=== PATIENT | male | born 1975 | race Caucasian/White ===

== ENCOUNTER 2017-03-18 11:37 | Observation (INO) | payer SELFPAY ==
[2017-03-18] MEDS ORDERED: Aspirin Low Dose CHEW TAB* 81 MG PO ONE (12:52)
[2017-03-18] MEDS ORDERED: Albuterol/Ipratropium NEB.SOL* Albuterol 2.5 MG/Ipratropium 0.5 MG 3 ML INH ONE ×2 (12:57→13:48)
[2017-03-18] MEDS ORDERED: methylPREDNISolone SOD SUCC* 125 MG 2 ML VIAL IV ONE (13:48)
[2017-03-18] MEDS: Nitroglycerin TAB 0.4 MG* 0.4 MG TAB SL ONE ×2 (14:15→14:52)
--- NOTE | 2017-03-18 14:25 | RAD ---
INDICATION: Chest pain. COMPARISON: Comparison is made with a prior chest x-ray study from April 05, 2012. TECHNIQUE: A portable view of the chest was obtained. FINDINGS: Cardiac and mediastinal contours appear to be within normal limits. The lungs are inflated and clear. No pleural effusion or pneumothorax is seen. IMPRESSION: NO EVIDENCE FOR ACUTE DISEASE.
[2017-03-18 14:26] LABS: Hematocrit 47 % (42-52); Hemoglobin 15.8 g/dl (14.0-18.0); Mean Corpuscular HGB Conc 34 g/dl (31-36); Mean Corpuscular Hemoglobin 30 pg (27-31); Mean Corpuscular Volume 90 fL (80-94); Mean Platelet Volume 9 um3 (7.4-10.4); Red Blood Count 5.23 10^6/ul (4.0-5.4); Red Cell Distribution Width 14 % (10.5-15); White Blood Count 9.3 10^3/ul (3.5-10.8)
[2017-03-18 14:40] LABS: Albumin 3.9 g/dL (3.2-5.2); BUN/Creatinine Ratio 14.6 (8-20); Calcium 9.2 mg/dL (8.6-10.3); EGFR Non-African American 93.3 (>60); Globulin 2.7 g/dL (2-4); Total Bilirubin 0.6 mg/dL (0.2-1.0); Total Protein 6.6 g/dL (6.4-8.9)
[2017-03-18] MEDS ORDERED: Iohexol 350* (CONTRAST) 500 ML MDV IV ONE (14:47)
--- NOTE | 2017-03-18 15:20 | RAD ---
INDICATION: Shortness of breath, LEFT side chest pain. COMPARISON: February 12, 2012 CT. TECHNIQUE: Multidetector CT images were obtained from the lung apices to the upper abdomen with 67 mL Omnipaque 350 IV contrast. Pulmonary angiogram protocol. Multiplanar reformation including with maximum intensity projection. REPORT: 1.3 cm RIGHT apical bleb. No alveolar consolidation or suspicious focal pulmonary lesions. Clear central airways. Negative for pleural effusion or pneumothorax. Negative for thoracic lymphadenopathy, cardiomegaly, pericardial effusion. Normal diameter well opacified thoracic aorta. Negative for dissection of the thoracic aorta. No filling defects are identified from the main to the subsegmental pulmonary arteries to indicate presence of a pulmonary embolism. Unremarkable limited images through the upper abdomen. Negative for thoracic fracture or suspicious focal osseous lesions. IMPRESSION: No evidence for pulmonary embolism or other acute intrathoracic process. Negative exam.
[2017-03-18] MEDS ORDERED: Albuterol HFA INHALER* 8 gm MDI INH PRN (17:39)
[2017-03-18] MEDS ORDERED: Enoxaparin(*) 40 MG/0.4 ML SYR SUBCUT SCH (18:00)
[2017-03-18] MEDS: Nicotine PATCH 21 MG/24 HR* PATCH TRANSDERM SCH (18:11)
[2017-03-18] MEDS: oxyCODONE/Acetamin 5/325 MG* TAB PO PRN (19:38)
[2017-03-18] MEDS ORDERED: HYDROmorphone* 1 MG/ML 1 ML SYR IV SLOW PU ONE (21:25)
--- NOTE | 2017-03-18 21:49 | HP ---
ADMISSION HISTORY AND PHYSICAL: DATE OF ADMISSION: 03/18/17 PRIMARY CARE PROVIDER: None. ADMITTING PROVIDER: MARTIN Argueta. SUPERVISING PHYSICIAN: Janell Carolina MD.* (DICTATED BY MARTIN ARGUETA) CHIEF COMPLAINT: Chest pain. HISTORY OF PRESENT ILLNESS: This is a 41-year-old gentleman with history of asthma and significant smoking history who presented to the emergency department with complaints of chest pain. The patient awoke with these symptoms this morning. He has initially noted some tingling sensation in both of his arms and then it seems to be in his left arm only. He reported some associated shortness of breath and he has a chronic cough that is unchanged. He states that his chest pain started to improve after receiving the second dose of nitroglycerin in the emergency department. Denied any associated nausea , vomiting, or diaphoresis. No history of similar symptoms. Of note, the patient's brother who is age 45 had an acute HI approximately 2 weeks ago. He denies any recent illness. PAST MEDICAL HISTORY: 1. Asthma. 2. History of spontaneous pneumothorax. PAST SURGICAL HISTORY: 1. Inguinal hernia repair x2. 2. Appendectomy. HOME MEDICATIONS: 1. Albuterol 2 puffs q.4 hours as needed for shortness of breath. 2. Aspirin 325 mg p.o. q.6 hours as needed for pain. FAMILY HISTORY: The patient's father had an acute HI in his 60s and his brother at the age of 45 also sustained an acute HI. SOCIAL HISTORY: The patient is and lives with his . 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 He smokes 2 packs of cigarettes daily with greater than [id number] smoking history. Rarely consumes alcohol. REVIEW OF SYSTEMS: As listed above in HPI, all other systems reviewed and negative. PHYSICAL EXAMINATION GENERAL: This is a 41-year-old gentleman who appears comfortable lying in a hospital stretcher, accompanied by his mother. INITIAL VITAL SIGNS: Temperature 98 degrees Fahrenheit, pulse 77 beats per minute, respiratory rate 20 per minute, oxygen saturation 100% on room air, and blood pressure 133/83 mmHg. HEENT: Head is normocephalic and atraumatic. Mucous membranes are pink and moist. RESPIRATORY: Lungs are clear to auscultation without wheezes, crackles, or rhonchi. CHEST: No tenderness to palpation. CARDIOVASCULAR: Heart has regular rate and rhythm without murmurs, rubs, or gallops. ABDOMEN: Abdomen is soft and nontender to palpation. EXTREMITIES: No lower extremity edema. SKIN: No concerning rashes or lesions. PSYCH: The patient is alert and appropriately oriented. DIAGNOSTIC STUDIES/LAB DATA: CBC is unremarkable with white blood cell count of 9.3, hemoglobin of 15.8 g/dL, and platelet count of 217,000. D-dimer is negative, is listed at less than 200. Comprehensive metabolic panel is unremarkable with the sodium of 138 mmol/L, potassium 4.0, random glucose of 111 mg/dL, lactic acid normal at 1.5, troponin negative x2. IMAGING: Chest x-ray shows no acute process. CTA of the chest shows no PE or other intrathoracic process. EKG shows a normal sinus rhythm. ASSESSMENT AND PLAN: This is a 41-year-old gentleman with history of asthma and extensive smoking history, who presents to the emergency department with complaints of chest pain. He has a strong family history for coronary disease. Initial EKG and troponins are unremarkable. 1. Chest pain - the patient is being admitted to observation status with complaint of chest pain. Initial troponin and EKG are unremarkable. The patient will receive one additional troponin. We will plan for nuclear stress test in the morning, maintain continuous telemetry monitoring overnight as well as fasting lipid panel. 2. Asthma - no evidence of acute exacerbation. The patient is nontoxic. No significant wheeze on exam. Continue p.r.n. albuterol. 3. Tobacco abuse - the patient is not interested in quitting at this time. He would like a nicotine patch during his hospital stay. 3. Code status - the patient is full code. 4. DVT prophylaxis - place the patient on Lovenox subcu for prophylaxis as he is at moderate risk for deep venous thrombosis. DISPOSITION: The patient is being admitted to observation status with anticipated discharge tomorrow. MARTIN ARGUETA [id number]/[facility] #: [id number] MTDDaina
[2017-03-18] MEDS ORDERED: Nicotine Patch Removal NOTE PATCH OFF SCH (23:00)
[2017-03-19] MEDS: oxyCODONE/Acetamin 5/325 MG* TAB PO PRN ×2 (00:43→07:21)
[2017-03-19] MEDS: Ketorolac INJ* 15 MG/ML 1 ML VIAL IV PRN ×2 (00:44→07:21)
[2017-03-19 04:44] VITALS: BP 102/46
[2017-03-19 06:50] LABS: BUN/Creatinine Ratio 20.6 (8-20); Calcium 9.3 mg/dL (8.6-10.3); EGFR African American 102.5 (>60); EGFR Non-African American 79.7 (>60); Potassium 4.5 mmol/L (3.5-5.0)
[2017-03-19] MEDS: Nicotine PATCH 21 MG/24 HR* PATCH TRANSDERM SCH (07:20)
[2017-03-19] MEDS ORDERED: Regadenoson* 0.4 MG/5 ML SYRINGE ONE (08:03)
[2017-03-19] MEDS ORDERED: Aminophylline IV* 25 MG/ML 10 ML VIAL ONE (08:03)
--- NOTE | 2017-03-19 09:55 | RAD ---
Edited for charges. INDICATION: Chest pain, tobacco use, family history of cardiac disease. COMPARISON: July 19, 2011 TECHNIQUE: 10.670 mCi of Tc-99m Myoview were administered IV. SPECT images of the heart were obtained. Later on the same day, under the direction of Dr. Ruiz, the patient was given an IV injection of a pharmacologic stress agent. Subsequently, the patient was given an IV injection of 25.780 mCi Tc-99m Myoview. SPECT images of the heart were obtained and a gated wall motion study was performed. FINDINGS: Gated wall motion images were obtained at stress and demonstrate wall motion to be within normal limits. The calculated left ventricular ejection fraction is 66 % at stress. Estimated LEFT ventricular end diastolic volume is 88 mL. TID 1.01. Diaphragmatic attenuation noted. Based on review of the attenuation corrected and non corrected images the distribution of radiopharmaceutical within the myocardium on the stress and rest images is within normal limits. No fixed or reversible regions of hypoperfusion evident. IMPRESSION: 1. No evidence for stress induced myocardial ischemia or presence of an infarct. 2. Normal left ventricular wall motion and ejection fraction. ASSESSMENT: LOW RISK. Based on imaging criteria from ACC/AHA 2002 Guideline Update for the Management of Patients With Chronic Stable Angina Table 23. Noninvasive Risk Stratification. MTDD
--- NOTE | 2017-03-20 02:15 | DS ---
DISCHARGE SUMMARY: DATE OF ADMISSION: 03/18/17 DATE OF DISCHARGE: 03/19/17 PRIMARY CARE PROVIDER: None. DISCHARGING PROVIDER: MARTIN Argueta. SUPERVISING PHYSICIAN: Janell Carolina MD.* (dictated by MARTIN Argueta) PRIMARY DISCHARGE DIAGNOSIS: Chest pain - likely musculoskeletal in origin. SECONDARY DISCHARGE DIAGNOSES: 1. Asthma/chronic obstructive pulmonary disease without acute exacerbation. 2. Tobacco use disorder. DISCHARGE MEDICATION: Albuterol inhaler 2 puffs inhaled q.4 hours as needed for shortness of breath. MEDICATION CHANGES: None. HOSPITAL IMAGIN. Chest x-ray shows no acute process. 2. CTA of the chest shows no PE or other acute process. 3. Nuclear stress test is read as a low risk study without evidence of ischemia or prior infarct. 4. EKG shows sinus rhythm with nonspecific ST segment changes that remains unchanged on serial EKGs. HOSPITAL COURSE: This is a 41-year-old gentleman with a significant smoking history and diagnosis of asthma who presents to the emergency department with complaints of chest pain. The patient awoke with left-sided chest pain with some associated shortness of breath yesterday. He reported associated tingling sensation in both of his arms that later concentrated in his left arm. The patient reported some improvement in his chest pain when he reached the emergency department after receiving his second dose of nitroglycerin. He reported some associated shortness of breath. He has a chronic cough, which did not change. No associated nausea, vomiting, or diaphoresis. Initial labs were unremarkable including a negative D-dimer and negative troponin. His initial EKG showed sinus rhythm with some nonspecific ST segment changes that were likely benign, but no prior EKGs were available for comparison at that time. The patient also reported a strong family history of coronary artery disease. His father sustained an acute NC in his 60s and his brother sustained an acute NC at the age of 45, actually just 2 weeks ago. The patient was subsequently admitted to observation status. He underwent serial troponins, which remains negative and continuous elementary monitoring which was unremarkable. He underwent nuclear stress test which was read as a low risk study. The patient describes continued chest pain at night, both at rest and with activity. Morning of discharge, he was able to reproduce his chest pain with shoulder flexion. He also complained of a slight tingling sensation in his left arm. Symptoms seemed to be most consistent with a muscular strain and likely associated nerve impingement. DISPOSITION: The patient is being discharged to home. He does not have health insurance or primary care provider. Offered for the patient to be with oncology social work to help obtain health insurance and a referral to primary care. He declined both of these. A prescription was sent for his albuterol inhaler as he did not have an inhaler available to him at home. This was sent to program. The patient is strongly advise to obtain health insurance and a primary care provider. MARTIN ARGUETA [id number]/[facility] #: [id number] JALEESA
== END 2017-03-19 11:30 | disposition home or self-care (01) ==
LOC: ED 11:37 → MEDTELE 17:33
PROVIDERS: ADMIT Internal Medicine; ATTEND Internal Medicine
DX: R07.9 Chest pain, unspecified (principal); R06.02 Shortness of breath; R20.2 Paresthesia of skin; R05 Cough; F17.210 Nicotine dependence, cigarettes, uncomplicated; J45.909 Unspecified asthma, uncomplicated; Z82.49 Family history of ischemic heart disease and other diseases of the circulatory system; Z87.09 Personal history of other diseases of the respiratory system
CPT/HCPCS: 36415; 71010; 71275; 78452; 80048; 80053; 80061; 83605; 83880; 84484; 85025; 85379; 93005; 93017; 94640; 96374; 99283; A9270-GY; A9502; G0378; J0280; J1170; J1650; J1885; J2785; Q9967

== ENCOUNTER 2017-03-24 19:24 | Emergency (ER) | payer SELFPAY ==
[2017-03-24 19:39] VITALS: BP 124/77
[2017-03-24] MEDS ORDERED: Polymyx/Trimethoprim OPTH* 10 ML BTL RIGHT EYE SCH (20:00)
--- NOTE | 2017-03-24 20:00 | ED ---
Throat Pain/Nasal Congestion - HPI Summary HPI Summary: 41M presents with two pieces of metal in right eye today. 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 He states he has surgery in this eye before due to a foreign body. His last tetanus was within 5 years ago. He does not wear any contacts or glasses. He states he has tried to take the metal object out off his eye and has been unable to do so. He denies any change in vision or discharge from his eye. - History of Current Complaint Chief Complaint: EDEyeProblem Time Seen by Provider: 03/24/17 19:40 - Allergies/Home Medications Allergies/Adverse Reactions: Allergies Allergy/AdvReac Type Severity Reaction Status Date / Time Hydrocodone [From Vicodin] Allergy Severe Nausea And Verified 12/19/15 16:45 Vomiting Morphine Allergy Severe Itching Verified 12/19/15 16:45 Codeine Allergy Vomiting Verified 12/19/15 16:45 Penicillins [PCN] Allergy Vomiting Verified 12/19/15 16:45 PMH/Surg Hx/FS Hx/Imm Hx Endocrine/Hematology History: Denies: Hx Anticoagulant Therapy, Hx Diabetes, Hx Thyroid Disease Cardiovascular History: Denies: Hx Congestive Heart Failure, Hx Hypertension, Hx Pacemaker/ICD, Hx Peripheral Vascular Disease Respiratory History: Reports: Hx Asthma, Other Respiratory Problems/Disorders - pneumothorax Denies: Hx Chronic Obstructive Pulmonary Disease (COPD) GI History: Denies: Other GI Disorders History: Denies: Hx Renal Disease Musculoskeletal History: Reports: Hx Back Problems - CHRONIC BACK PAIN Denies: Hx Arthritis, Hx Osteoporosis, Hx Scoliosis Sensory History: Denies: Hx Cataracts, Hx Contacts or Glasses, Hx Glaucoma, Hx Hearing Aid Opthamlomology History: Denies: Hx Cataracts, Hx Contacts or Glasses, Hx Glaucoma Neurological History: Reports: Hx Headaches Denies: Hx Dementia, Hx Seizures, Hx Transient Ischemic Attacks (TIA), Other Neuro Impairments/Disorders Psychiatric History: Denies: Hx Anxiety, Hx Depression, Hx Substance Abuse - Surgical History Surgery Procedure, Year, and Place[place] [facility] [place]ING[place]IN[place]IA SX'[place] [facility] [place] Hx Anesthesia Reactions: No Infectious Disease History: No Infectious Disease History: Denies: Hx Hepatitis, Hx Human Immunodeficiency Virus (HIV), History Other Infectious Disease, Traveled Outside the [place] in Last 30 Days - Family History Known Family History: Positive: Cardiac Disease - Brother with [place] at age 45. - Social History Alcohol Use: Rare Substance Use Type: Reports: None Hx Tobacco Use: Yes Smoking Status (MU): Heavy Every Day Tobacco Smoker Type: Cigarettes Amount Used/How Often: 1 PPD Review of Systems Negative: Fever Positive: Other - foreign body in eye Negative: Chest Pain Negative: Shortness Of Breath All Other Systems Reviewed And Are Negative: Yes Physical Exam Triage Information Reviewed: Yes Vital Signs On Initial Exam: Initial Vitals Temp Pulse Resp BP Pulse Ox 97.8 F 104 16 144/81 99 03/24/17 19:25 03/24/17 19:25 03/24/17 19:25 03/24/17 19:25 03/24/17 19:25 Vital Signs Reviewed: Yes Appearance: Positive: Well-Appearing Skin: Positive: Warm, Dry Head/Face: Positive: Normal Head/Face Inspection Eyes: Positive: EOMI, VIVIANA, Conjunctiva Inflammed, Other: - 2 metal objects seen in right eye on lateral aspect of eye. Negative: Discharge ENT: Positive: Normal ENT inspection, Pharynx normal, TMs normal Respiratory/Lung Sounds: Positive: Clear to Auscultation, Breath Sounds Present Cardiovascular: Positive: Normal, RRR Procedures - Eye Procedure Alcaine Drops Administered: Yes - small 1/4 abrasion noted on fluroscein exam Eye FB Removal: removal w/ cotton swab - two objects removed from eye Diagnostics - Vital Signs Vital Signs Temp Pulse Resp BP Pulse Ox 03/24/17 19:37 99.5 F 94 16 124/77 97 03/24/17 19:25 97.8 F 104 16 144/81 99 - Laboratory Lab Statement: Any lab studies that have been ordered have been reviewed, and results considered in the medical decision making process. EENT Course/Dx - Course Course Of Treatment: 41M presents with metal in right eye from welding. removed both objects with cotton swap. fluroscein exam shows small corneal abrasion. tetanus up to date. will treat with polytrim and have follow up with ophthalmology. patient understands and agrees with plan - Differential Diagnoses Differential Diagnoses: Conjunctivitis, Corneal Abrasion, Foreign Body - Diagnoses Provider Diagnoses: Foreign body of right eye Discharge - Discharge Plan Condition: Good Disposition: HOME Patient Education Materials: Eye Foreign Body (ED) Referrals: No Primary Care Phys,NOPCP [Primary Care Provider] - Julian Pillai MD [Medical Doctor] - Additional Instructions: Place one drop in right eye 4 times a day for 5 days Follow up with ophthalmology Take Tylenol or ibuprofen for pain Return to ED if develop any new or worsening symptoms
== END 2017-03-24 20:33 | disposition home or self-care (01) ==
LOC: ED 19:24
DX: T15.91XA Foreign body on external eye, part unspecified, right eye, initial encounter (principal); X58.XXXA Exposure to other specified factors, initial encounter; Y93.9 Activity, unspecified; Y92.9 Unspecified place or not applicable; F17.210 Nicotine dependence, cigarettes, uncomplicated
CPT/HCPCS: 99282

== ENCOUNTER 2017-05-20 18:39 | Emergency (ER) | payer SELFPAY ==
[2017-05-20] MEDS ORDERED: Ibuprofen TAB* 800 MG PO ONE (19:43)
[2017-05-20 20:15] LABS: Hematocrit 44 % (42-52); Hemoglobin 14.9 g/dl (14.0-18.0); Mean Corpuscular HGB Conc 34 g/dl (31-36); Mean Corpuscular Hemoglobin 31 pg (27-31); Mean Corpuscular Volume 92 fL (80-94); Mean Platelet Volume 8 um3 (7.4-10.4); Red Cell Distribution Width 13 % (10.5-15); White Blood Count 9.6 10^3/ul (3.5-10.8)
[2017-05-20 20:30] LABS: BUN/Creatinine Ratio 19.4 (8-20); C Reactive Protein 4.77 mg/L (< 5.00); Calcium 9.3 mg/dL (8.6-10.3); EGFR African American 101.4 (>60); EGFR Non-African American 78.8 (>60); Globulin 2.6 g/dL (2-4); Potassium 3.9 mmol/L (3.5-5.0); Total Bilirubin 0.5 mg/dL (0.2-1.0); Total Protein 6.6 g/dL (6.4-8.9)
--- NOTE | 2017-05-20 20:48 | ED ---
thien Chavez Timothy, scribed for Lorenzo Ma MD on 05/20/17 at 1942 . Abdominal Pain/Male - HPI Summary HPI Summary: Sharad Barakat Sr. is a 41 yo male presenting to [facility] with 10/10 constant mid abd pain radiating around the right side to his back since 05/16/17. He denies any trauma or Hx of similar Sx. He notes that lying down increases the pain in his back, and taking a bath makes it burn. He denies any N/V/D or fever. His MHx includes MCKINNEY, asthma, herniated disk C5-C6, chronic back pain, tobacco use. - History of Current Complaint Chief Complaint: EDAbdPain Stated Complaint: UPPER ABD/BACK PAIN Time Seen by Provider: 05/20/17 19:36 Hx Obtained From: Patient Onset/Duration: Sudden Onset, Lasting Days, Still Present Timing: Constant, Lasting Days Severity Initially: Moderate Severity Currently: Moderate Pain Intensity: 10 Pain Scale Used: 0-10 Numeric Location: Diffuse Radiates: Yes Radiates to: Back Character: Burning - when in bath Aggravating Factor(s): Other: - lying down Associated Signs And Symptoms: Positive: Back Pain. Negative: Nausea, Vomiting , Diarrhea - Allergies/Home Medications Allergies/Adverse Reactions: Allergies Allergy/AdvReac Type Severity Reaction Status Date / Time Hydrocodone [From Vicodin] Allergy Severe Nausea And Verified 12/19/15 16:45 Vomiting Morphine Allergy Severe Itching Verified 12/19/15 16:45 Codeine Allergy Vomiting Verified 12/19/15 16:45 Penicillins [PCN] Allergy Vomiting Verified 12/19/15 16:45 PMH/Surg Hx/FS Hx/Imm Hx Endocrine/Hematology History: Denies: Hx Anticoagulant Therapy, Hx Diabetes, Hx Thyroid Disease Cardiovascular History: Denies: Hx Congestive Heart Failure, Hx Hypertension, Hx Pacemaker/ICD, Hx Peripheral Vascular Disease Respiratory History: Reports: Hx Asthma, Other Respiratory Problems/Disorders - pneumothorax Denies: Hx Chronic Obstructive Pulmonary Disease (COPD) GI History: Denies: Other GI Disorders History: Denies: Hx Renal Disease Musculoskeletal History: Reports: Hx Back Problems - CHRONIC BACK PAIN Denies: Hx Arthritis, Hx Osteoporosis, Hx Scoliosis Sensory History: Denies: Hx Cataracts, Hx Contacts or Glasses, Hx Glaucoma, Hx Hearing Aid Opthamlomology History: Denies: Hx Cataracts, Hx Contacts or Glasses, Hx Glaucoma Neurological History: Reports: Hx Headaches Denies: Hx Dementia, Hx Seizures, Hx Transient Ischemic Attacks (TIA), Other Neuro Impairments/Disorders Psychiatric History: Denies: Hx Anxiety, Hx Depression, Hx Substance Abuse - Surgical History Surgery Procedure, Year, and Place: APPENDECTOMY @ [facility] [place] 20 [place]RS[place], [place].INGUINAL HERNIA SX'S @ [facility] [place] 2 [place] Hx Anesthesia Reactions: No Infectious Disease History: No Infectious Disease History: Denies: Hx Hepatitis, Hx Human Immunodeficiency Virus (HIV), History Other Infectious Disease, Traveled Outside the [place] in Last 30 Days - Family History Known Family History: Positive: Cardiac Disease - Brother with NC at age 45. , Hypertension, Diabetes - Social History Alcohol Use: Rare Substance Use Type: Reports: None Hx Tobacco Use: Yes Smoking Status (MU): Heavy Every Day Tobacco Smoker Type: Cigarettes Amount Used/How Often: 1 PPD Review of Systems Constitutional: Negative Negative: Fever Eyes: Negative ENT: Negative Cardiovascular: Negative Respiratory: Negative Positive: Abdominal Pain - radiating to right side and back. Negative: Vomiting , Diarrhea, Nausea Genitourinary: Negative Musculoskeletal: Negative Skin: Negative Neurological: Negative Psychological: Normal All Other Systems Reviewed And Are Negative: Yes Physical Exam Triage Information Reviewed: Yes Vital Signs On Initial Exam: Initial Vitals Temp Pulse Resp BP Pulse Ox 98.7 F 88 18 132/83 97 05/20/17 18:51 05/20/17 18:51 05/20/17 18:51 05/20/17 18:51 05/20/17 18:51 Vital Signs Reviewed: Yes Appearance: Positive: Well-Appearing, No Pain Distress Skin: Positive: Warm Head/Face: Positive: Normal Head/Face Inspection Eyes: Positive: VIVIANA ENT: Positive: Hearing grossly normal Neck: Positive: Supple Respiratory/Lung Sounds: Positive: Clear to Auscultation, Breath Sounds Present Cardiovascular: Positive: RRR Abdomen Description: Positive: Nontender, No Organomegaly, Soft Bowel Sounds: Positive: Present Musculoskeletal: Positive: Strength/ROM Intact Neurological: Positive: Sensory/Motor Intact, Normal Gait Psychiatric: Positive: Affect/Mood Appropriate - Evelin Coma Scale Coma Scale Total: 15 Diagnostics - Vital Signs Vital Signs Temp Pulse Resp BP Pulse Ox 05/20/17 19:00 87 113/79 97 06/27/17 18:58 87 96 05/20/17 18:57 98.7 F 88 18 132/83 97 05/20/17 18:56 121/80 05/20/17 18:51 98.7 F 88 18 132/83 97 - Laboratory Lab Results: Lab Results 05/20/17 05/20/17 Range/Units 20:00 20:00 WBC 9.6 (3.5-10.8) 10^3/ul RBC 4.80 (4.0-5.4) 10^6/ul Hgb 14.9 (14.0-18.0) g/dl Hct 44 (42-52) % MCV 92 (80-94) fL MCH 31 (27-31) pg MCHC 34 (31-36) g/dl RDW 13 (10.5-15) % Plt Count 253 (150-450) 10^3/ul MPV 8 (7.4-10.4) um3 Neut % (Auto) 60.8 (38-83) % Lymph % (Auto) 27.8 (25-47) % Toombs % (Auto) 7.7 (1-9) % Eos % (Auto) 2.3 (0-6) % Baso % (Auto) 1.4 (0-2) % Absolute Neuts (auto) 5.9 (1.5-7.7) 10^3/ul Absolute Lymphs (auto) 2.7 (1.0-4.8) 10^3/ul Absolute Monos (auto) 0.7 (0-0.8) 10^3/ul Absolute Eos (auto) 0.2 (0-0.6) 10^3/ul Absolute Basos (auto) 0.1 (0-0.2) 10^3/ul Absolute Nucleated RBC 0.01 10^3/ul Nucleated RBC % 0.1 Sodium 136 (133-145) mmol/L Potassium 3.9 (3.5-5.0) mmol/L Chloride 107 (101-111) mmol/L Carbon Dioxide 26 (22-32) mmol/L Anion Gap 3 (2-11) mmol/L BUN 20 (6-24) mg/dL Creatinine 1.03 (0.67-1.17) mg/dL Est GFR ( Amer) 101.4 (>60) Est GFR (Non-Af Amer) 78.8 (>60) BUN/Creatinine Ratio 19.4 (8-20) Glucose 94 (70-100) mg/dL Calcium 9.3 (8.6-10.3) mg/dL Total Bilirubin 0.50 (0.2-1.0) mg/dL AST 14 (13-39) U/L ALT 14 (7-52) U/L Alkaline Phosphatase 77 (34-104) U/L C-Reactive Protein 4.77 (< 5.00) mg/L Total Protein 6.6 (6.4-8.9) g/dL Albumin 4.0 (3.2-5.2) g/dL Globulin 2.6 (2-4) g/dL Albumin/Globulin Ratio 1.5 (1-3) Result Diagrams: 05/20/17 20:00 05/20/17 20:00 Lab Statement: Any lab studies that have been ordered have been reviewed, and results considered in the medical decision making process. Re-Evaluation - Re-Evaluation First Eval Re-Evaluation Time: 20:49 Change: Improved Comment: Discussed lab study results with Pt and answered questions to Pt satisfaction. He is agreeable to current course of Tx. Abdominal Pain Fem Course/Dx - Course Assessment/Plan: Sharad Barakat is a 41 yo male presenting to [facility] with 10/ 10 constant abd pain radiaitng to his right side and back since 05/16/17. Pt medication list reviewed this visit. In the ED course he received ibuprofen for pain management. After clinical examination and review of his lab studies, he will be discharged home with abdominal and back pain with appropriate instructions. - Diagnoses Differential Diagnosis/HQI/PQRI: Other - abdominal pain, back pain Provider Diagnoses: Abdominal pain, Back pain Discharge - Discharge Plan Condition: Stable Disposition: HOME Prescriptions: Ibuprofen TAB* [Motrin TAB* 800 MG] 800 mg PO Q8H #30 tab Patient Education Materials: Acute Abdominal Pain (ED), Back Pain (ED) Referrals: [facility] [place] PHYSICIAN REFERRAL [Outside] - 2 Days Additional Instructions: Please follow up with the primary care physician provided regarding your visit to the emergency department today. Return to the emergency department with any new or recurring symptoms. The documentation as recorded by the thien chamberlain Timothy accurately reflects the service I personally performed and the decisions made by , Lorenzo Ma MD.
[2017-05-20 20:51] VITALS: BP 116/68
== END 2017-05-20 20:50 | disposition home or self-care (01) ==
LOC: ED 18:39
DX: M54.9 Dorsalgia, unspecified (principal); R10.9 Unspecified abdominal pain; F17.210 Nicotine dependence, cigarettes, uncomplicated
CPT/HCPCS: 36415; 80053; 85025; 86140; 99282; A9270-GY

== ENCOUNTER 2017-10-01 22:59 | Emergency (ER) | payer SELFPAY ==
[2017-10-01] MEDS ORDERED: Ondansetron INJ* 2 MG/ML VIAL IV ONE (23:52)
[2017-10-01] MEDS ORDERED: NS 0.9% 1000 ML* 1,000 ML IV ONE (23:53)
[2017-10-01] MEDS ORDERED: Pantoprazole IV* 40 MG IV ONE (23:54)
[2017-10-02 00:31] LABS: Hematocrit 43 % (42-52); Mean Corpuscular HGB Conc 35 g/dl (31-36); Mean Corpuscular Hemoglobin 31 pg (27-31); Mean Corpuscular Volume 90 fL (80-94); Mean Platelet Volume 8 um3 (7.4-10.4); Red Blood Count 4.79 10^6/ul (4.0-5.4); Red Cell Distribution Width 13 % (10.5-15); White Blood Count 9.7 10^3/ul (3.5-10.8)
[2017-10-02 00:41] LABS: Albumin 3.8 g/dL (3.2-5.2); BUN/Creatinine Ratio 16.1 (8-20); Calcium 9.5 mg/dL (8.6-10.3); EGFR Non-African American 71.6 (>60); Globulin 2.8 g/dL (2-4); Potassium 4.1 mmol/L (3.5-5.0); Total Bilirubin 0.3 mg/dL (0.2-1.0); Total Protein 6.6 g/dL (6.4-8.9)
[2017-10-02 00:59] VITALS: BP 132/81
--- NOTE | 2017-10-02 07:51 | RAD ---
INDICATION: Abdominal pain. Nausea. COMPARISON: None TECHNIQUE: Erect and supine views of the abdomen are submitted. FINDINGS: Bones: There are no acute bony findings. Soft tissues: The soft tissues appear normal. The psoas margins are sharp. Bowel gas pattern: Normal. There is moderate stool, however. Calcifications: There are no abnormal calcifications. Other: None IMPRESSION: MODERATE STOOL, OTHERWISE NEGATIVE
--- NOTE | 2017-10-10 02:11 | ED ---
Soila Chavez Nilda, scribed for Jarek Garza MD on 10/01/17 at 2359 . Abdominal Pain/Male - HPI Summary HPI Summary: This patient is a 41 year old M [place] [facility] [place] by with a chief complaint of sharp, non-radiating upper abd pain for the past 1.5 weeks. The patient rates the pain 8/10 in severity. Symptoms aggravated by food and alleviated by nothing. Patient reports nausea, vomiting (today, food), and gas. Patient denies melena, gallbladder issues, and hematemesis. Per , pt takes about half a bottle of aspirin per week. PMHx includes stomach ulcers and hernia. - History of Current Complaint Chief Complaint: EDAbdPain Stated Complaint: ABD PAIN Time Seen by Provider: 10/01/17 23:51 Hx Obtained From: Patient, Family/Tuber Machine Cutter - Onset/Duration: Sudden Onset, Lasting Days, Still Present Timing: Constant Severity Currently: Severe Pain Intensity: 8 Pain Scale Used: 0-10 Numeric Location: Epigastric Radiates: No Character: Sharp Aggravating Factor(s): Food Alleviating Factor(s): Nothing Associated Signs And Symptoms: Positive: Other - nausea, vomiting (today, food) , and gas. Patient denies melena, gallbladder issues, and hematemesis. - Allergies/Home Medications Allergies/Adverse Reactions: Allergies Allergy/AdvReac Type Severity Reaction Status Date / Time Hydrocodone [From Vicodin] Allergy Severe Nausea And Verified 12/19/15 16:45 Vomiting Morphine Allergy Severe Itching Verified 12/19/15 16:45 Codeine Allergy Vomiting Verified 12/19/15 16:45 Penicillins [PCN] Allergy Vomiting Verified 12/19/15 16:45 PMH/Surg Hx/FS Hx/Imm Hx Endocrine/Hematology History: Denies: Hx Anticoagulant Therapy, Hx Diabetes, Hx Thyroid Disease Cardiovascular History: Denies: Hx Congestive Heart Failure, Hx Hypertension, Hx Pacemaker/ICD, Hx Peripheral Vascular Disease Respiratory History: Reports: Hx Asthma, Other Respiratory Problems/Disorders - pneumothorax Denies: Hx Chronic Obstructive Pulmonary Disease (COPD) GI History: Denies: Other GI Disorders History: Denies: Hx Renal Disease Musculoskeletal History: Reports: Hx Back Problems - CHRONIC BACK PAIN Denies: Hx Arthritis, Hx Osteoporosis, Hx Scoliosis Sensory History: Denies: Hx Cataracts, Hx Contacts or Glasses, Hx Glaucoma, Hx Hearing Aid Opthamlomology History: Denies: Hx Cataracts, Hx Contacts or Glasses, Hx Glaucoma Neurological History: Reports: Hx Headaches Denies: Hx Dementia, Hx Seizures, Hx Transient Ischemic Attacks (TIA), Other Neuro Impairments/Disorders Psychiatric History: Denies: Hx Anxiety, Hx Depression, Hx Substance Abuse - Surgical History Surgery Procedure, Year, and Place: [place] [facility] [place] [facility] [place] Hx Anesthesia Reactions: No Infectious Disease History: No Infectious Disease History: Denies: Hx Hepatitis, Hx Human Immunodeficiency Virus (HIV), History Other Infectious Disease, Traveled Outside the [place] in Last 30 Days - Family History Known Family History: Positive: Cardiac Disease - Brother with [place] at age 45. , Hypertension, Diabetes - Social History Alcohol Use: Rare Substance Use Type: Reports: None Hx Tobacco Use: Yes Smoking Status (MU): Heavy Every Day Tobacco Smoker Type: Cigarettes Amount Used/How Often: 1 PPD Review of Systems Negative: Shortness Of Breath Positive: Abdominal Pain, Vomiting, Nausea, Other - gas; negative melena, gallbladder issues, and hematemesis All Other Systems Reviewed And Are Negative: Yes Physical Exam - Summary Physical Exam Summary: Appearance: Well-appearing, Well-nourished Skin: Warm Eyes: Normal ENT: Normal Neck: Supple, nontender Respiratory: Clear to auscultation Cardiovascular: S1, S2, no murmur, no rub, no gallop Abdomen: Soft, mild tenderness in mid-epigastrium Bowel: Present Musculoskeletal: Normal, Strength/ROM Intact, no edema Neurological: Normal, A&Ox3, cranial nerves 2-12 wnl Psychiatric: Normal Triage Information Reviewed: Yes Vital Signs On Initial Exam: Initial Vitals Temp Pulse Resp BP Pulse Ox 98.2 F 93 18 139/88 98 10/01/17 23:03 10/01/17 23:03 10/01/17 23:03 10/01/17 23:03 10/01/17 23:03 Vital Signs Reviewed: Yes - Evelin Coma Scale Coma Scale Total: 15 Diagnostics - Vital Signs Vital Signs Temp Pulse Resp BP Pulse Ox 10/01/17 23:03 98.2 F 93 18 139/88 98 - Laboratory Lab Results: Lab Results 10/02/17 10/02/17 Range/Units 00:19 00:19 WBC 9.7 (3.5-10.8) 10^3/ul RBC 4.79 (4.0-5.4) 10^6/ul Hgb 15.0 (14.0-18.0) g/dl Hct 43 (42-52) % MCV 90 (80-94) fL MCH 31 (27-31) pg MCHC 35 (31-36) g/dl RDW 13 (10.5-15) % Plt Count 260 (150-450) 10^3/ul MPV 8 (7.4-10.4) um3 Neut % (Auto) 58.0 (38-83) % Lymph % (Auto) 30.9 (25-47) % [place] % (Auto) 7.9 (1-9) % Eos % (Auto) 2.6 (0-6) % Baso % (Auto) 0.6 (0-2) % Absolute Neuts (auto) 5.6 (1.5-7.7) 10^3/ul Absolute Lymphs (auto) 3.0 (1.0-4.8) 10^3/ul Absolute Monos (auto) 0.8 (0-0.8) 10^3/ul Absolute Eos (auto) 0.3 (0-0.6) 10^3/ul Absolute Basos (auto) 0.1 (0-0.2) 10^3/ul Absolute Nucleated RBC 0 10^3/ul Nucleated RBC % 0 Sodium 138 (133-145) mmol/L Potassium 4.1 (3.5-5.0) mmol/L Chloride 107 (101-111) mmol/L Carbon Dioxide 26 (22-32) mmol/L Anion Gap 5 (2-11) mmol/L BUN 18 (6-24) mg/dL Creatinine 1.12 (0.67-1.17) mg/dL Est GFR ( Amer) 92.0 (>60) Est GFR (Non-Af Amer) 71.6 (>60) BUN/Creatinine Ratio 16.1 (8-20) Glucose 85 (70-100) mg/dL Calcium 9.5 (8.6-10.3) mg/dL Total Bilirubin 0.30 (0.2-1.0) mg/dL AST 14 (13-39) U/L ALT 24 (7-52) U/L Alkaline Phosphatase 71 (34-104) U/L Total Protein 6.6 (6.4-8.9) g/dL Albumin 3.8 (3.2-5.2) g/dL Globulin 2.8 (2-4) g/dL Albumin/Globulin Ratio 1.4 (1-3) Lipase 32 (11.0-82.0) U/L Result Diagrams: 10/02/17 00:19 10/02/17 00:19 Lab Statement: Any lab studies that have been ordered have been reviewed, and results considered in the medical decision making process. - Radiology Abd Xray Radiology Interpretation Completed By: ED Physician - NAD. Abdominal Pain Fem Course/Dx - Course Course Of Treatment: This patient is a 41 year old M presenting [place] [facility] [place] by with a chief complaint of sharp, non-radiating upper abd pain for the past 1.5 weeks. The patient rates the pain 8/10 in severity. Symptoms aggravated by food and alleviated by nothing. Patient reports nausea, vomiting (today, food), and gas. Patient denies melena, gallbladder issues, and hematemesis. Per , pt takes about half a bottle of aspirin per week. PMHx includes stomach ulcers and hernia. Abd xray reveals NAD. Patient is stable and will be D/C with diagnosis of gastritis. - Diagnoses Provider Diagnoses: Gastritis Discharge - Discharge Plan Condition: Good Disposition: HOME Discharge Disposition Comment: home Prescriptions: Pantoprazole TAB (NF) [Protonix TAB (NF)] 40 mg PO DAILY #14 tab Patient Education Materials: Gastritis (ED) Referrals: No Primary Care Phys,NOPCP [Primary Care Provider] - Additional Instructions: stop NSAIDS , no motrin The documentation as recorded by the Soila chamberlain Nilda accurately reflects the service I personally performed and the decisions made by me, Jarek Garza MD.
== END 2017-10-02 01:54 | disposition home or self-care (01) ==
LOC: ED 22:59
DX: K29.70 Gastritis, unspecified, without bleeding (principal); R11.2 Nausea with vomiting, unspecified; R10.9 Unspecified abdominal pain
CPT/HCPCS: 36415; 74020; 80053; 83690; 85025; 96374; 96375; 99283; J2405

== ENCOUNTER 2018-06-27 14:16 | Observation (INO) | payer SELFPAY ==
[2018-06-27] MEDS ORDERED: Aspirin TAB* 325 MG PO ONE (14:43)
[2018-06-27] MEDS ORDERED: Aspirin 81 mg CHEW TAB* 81 MG TAB.CHEW ONE (14:52)
[2018-06-27] MEDS ORDERED: Aspirin 81 mg CHEW TAB* 81 MG TAB.CHEW PO ONE (14:53)
[2018-06-27 14:59] LABS: ABS Basophils 0 10^3/ul (0-0.2); ABS Eosinophils 0.1 10^3/ul (0-0.6); ABS Lymphocytes 1.7 10^3/ul (1.0-4.8); ABS Monocytes 0.8 10^3/ul (0-0.8); ABS Neutrophils 7.6 10^3/ul (1.5-7.7); ABS Nucleated RBC 0 10^3/ul; Eosinophil % 0.8 % (0-6); Hematocrit 52 % (42-52); Hemoglobin 17.9 g/dl (14.0-18.0); Lymphocyte % 16.7 % (25-47); Mean Corpuscular HGB Conc 35 g/dl (31-36); Mean Corpuscular Hemoglobin 31 pg (27-31); Mean Corpuscular Volume 89 fL (80-94); Mean Platelet Volume 8.4 um3 (7.4-10.4); Nucleated Red Blood Cells % 0.1; Platelet Count 328 10^3/ul (150-450); Red Blood Count 5.79 10^6/ul (4.00-5.40); Red Cell Distribution Width 14 % (10.5-15); White Blood Count 10.3 10^3/ul (3.5-10.8)
--- NOTE | 2018-06-27 15:06 | ED ---
HPI Chest Pain - HPI Summary HPI Summary: This is scribwaylon Jarquin documenting for attending Aaron Wilson MD. Patient is a 42 y/o M w/ c/o left side chest pain onsetting yesterday. Patient has been experiencing chest pain since yesterday at around 1999. Pain radiates to neck. He also experienced left arm tingling and numbness as well as diaphoresis at this time. Pain and associated Sx progressively worsened and the patient states he woke up on the floor this morning. He has no recollection of what occurred. Patient was found by son and neighbor. He denies dizziness. On triage, pain is rated 9/10 and nothing is noted to aggravate/alleviate Sx. Home medications and allergies are reviewed. - History of Current Complaint Chief Complaint: EDChestPainROMI Hx Obtained From: Patient Onset/Duration: Started Days Ago - last night around 1999, Still Present, Worse Since Timing: Constant Current Severity: Severe Pain Intensity: 9 Pain Scale Used: 0-10 Numeric - 9/10 Chest Pain Location: Discrete at: - left side Chest Pain Radiates: Yes Chest Pain Radiates To:: Neck Aggravating Factor(s): Nothing Alleviating Factor(s): Nothing Associated Signs and Symptoms: Positive: Numbness - left arm, Tingling - left arm, Syncope, Diaphoresis. Negative: Dizziness - Allergy/Home Medications Allergies/Adverse Reactions: Allergies Allergy/AdvReac Type Severity Reaction Status Date / Time morphine Allergy Itching Verified 06/27/18 14:32 codeine AdvReac Vomiting Verified 06/27/18 17:22 hydrocodone AdvReac Nausea And Verified 06/27/18 17:22 Vomiting Penicillins AdvReac Vomiting Verified 06/27/18 17:22 Home Medications: Home Medications NK [No Home Medications Reported] 06/27/18 [History Confirmed 06/27/18] PMH/Surg Hx/FS Hx/Imm Hx Endocrine/Hematology History: Denies: Hx Anticoagulant Therapy, Hx Diabetes, Hx Thyroid Disease Cardiovascular History: Denies: Hx Congestive Heart Failure, Hx Hypertension, Hx Pacemaker/ICD, Hx Peripheral Vascular Disease Respiratory History: Reports: Hx Asthma, Other Respiratory Problems/Disorders - pneumothorax Denies: Hx Chronic Obstructive Pulmonary Disease (COPD) GI History: Denies: Other GI Disorders History: Denies: Hx Renal Disease Musculoskeletal History: Reports: Hx Back Problems - CHRONIC BACK PAIN Denies: Hx Arthritis, Hx Osteoporosis, Hx Scoliosis Sensory History: Denies: Hx Cataracts, Hx Contacts or Glasses, Hx Glaucoma, Hx Hearing Aid Opthamlomology History: Denies: Hx Cataracts, Hx Contacts or Glasses, Hx Glaucoma Neurological History: Reports: Hx Headaches Denies: Hx Dementia, Hx Seizures, Hx Transient Ischemic Attacks (TIA), Other Neuro Impairments/Disorders Psychiatric History: Denies: Hx Anxiety, Hx Depression, Hx Substance Abuse - Surgical History Surgery Procedure, Year, and Place[place] [facility] [place] [facility] [place] Hx Anesthesia Reactions: No Infectious Disease History: No Infectious Disease History: Denies: Hx Hepatitis, Hx Human Immunodeficiency Virus (HIV), History Other Infectious Disease, Traveled Outside the [place] in Last 30 Days - Family History Known Family History: Positive: Cardiac Disease - Brother with [place] at age 45. , Hypertension, Diabetes - Social History Alcohol Use: Occasionally Substance Use Type: Reports: None Hx Tobacco Use: Yes Smoking Status (MU): Heavy Every Day Tobacco Smoker Type: Cigarettes Amount Used/How Often: 1 PPD Review of Systems Positive: Skin Diaphoresis Positive: Chest Pain - left side, radiates to neck Neurological: Other - NEGATIVE: dizziness POSITIVE: left arm tingling Positive: Numbness - left arm, Syncope All Other Systems Reviewed And Are Negative: Yes Physical Exam - Summary Physical Exam Summary: Appearance: The patient is well-nourished in no acute distress and in no acute pain. Patient is diaphoretic. Skin: The skin is warm and dry and skin color reflects adequate perfusion. HEENT: The head is normocephalic and atraumatic. The pupils are equal and reactive. The conjunctivae are clear and without drainage. Nares are patent and without drainage. Mouth reveals moist mucous membranes and the throat is without erythema and exudate. The external ears are intact. The ear canals are patent and without drainage. The tympanic membranes are intact. Neck: The neck is supple with full range of motion and non-tender. There are no carotid bruits. There is no neck vein distension. Respiratory: Chest is non-tender. Lungs are clear to auscultation. Breath sounds are decreased; otherwise normal. Cardiovascular: Heart is regular rate and rhythm. There is no murmur or rub auscultated. There is no peripheral edema and pulses are symmetrical and equal. Abdomen: The abdomen is soft and non-tender. There are normal bowel sounds heard in all four quadrants and there is no organomegaly palpated. Musculoskeletal: There is no back tenderness noted. Extremities are non-tender with full range of motion. There is good capillary refill. There is no peripheral edema or calf tenderness elicited. Neurological: Patient is alert and oriented to person, place and time. The patient has symmetrical motor strength in all four extremities. Cranial nerves are grossly intact. Deep tendon reflexes are symmetrical and equal in all four extremities. Psychiatric: The patient has an appropriate affect and does not exhibit any anxiety or depression. Triage Information Reviewed: Yes Vital Signs On Initial Exam: Initial Vitals Temp Pulse Resp BP Pulse Ox 97.1 F 105 28 126/93 99 06/27/18 14:23 06/27/18 14:23 06/27/18 14:23 06/27/18 14:23 06/27/18 14:23 Vital Signs Reviewed: Yes Diagnostics - Vital Signs Vital Signs Temp Pulse Resp BP Pulse Ox 06/27/18 14:50 98 06/27/18 14:25 103 35 99 06/27/18 14:23 97.1 F 103 28 126/93 99 - Laboratory Lab Results: Lab Results 06/27/18 Range/Units 14:43 WBC 10.3 (3.5-10.8) 10^3/ul RBC 5.79 H (4.00-5.40) 10^6/ul Hgb 17.9 (14.0-18.0) g/dl Hct 52 (42-52) % MCV 89 (80-94) fL MCH 31 (27-31) pg MCHC 35 (31-36) g/dl RDW 14 (10.5-15) % Plt Count 328 (150-450) 10^3/ul MPV 8.4 (7.4-10.4) um3 Neut % (Auto) 74.2 (38-83) % Lymph % (Auto) 16.7 L (25-47) % [place]ye % (Auto) 7.9 H (0-7) % Eos % (Auto) 0.8 (0-6) % Baso % (Auto) 0.4 (0-2) % Absolute Neuts (auto) 7.6 (1.5-7.7) 10^3/ul Absolute Lymphs (auto) 1.7 (1.0-4.8) 10^3/ul Absolute Monos (auto) 0.8 (0-0.8) 10^3/ul Absolute Eos (auto) 0.1 (0-0.6) 10^3/ul Absolute Basos (auto) 0 (0-0.2) 10^3/ul Absolute Nucleated RBC 0 10^3/ul Nucleated RBC % 0.1 Result Diagrams: 06/27/18 14:43 06/27/18 14:43 Lab Statement: Any lab studies that have been ordered have been reviewed, and results considered in the medical decision making process. - Radiology CXR Xray Interpretation: No Acute Changes Radiology Interpretation Completed By: Radiologist - No active cardiopulmonary disease is noted. This report was reviewed by ED physician. - EKG 1427 Cardiac Rate: Tachycardia - Rate of 102 BPM EKG Rhythm: Sinus Tachycardia ST Segment: Normal EKG Interpretation: normal EKG Chest Pain Course/Dx - Course Course Of Treatment: Mr. Barakat presented complaining of severe left-sided sharp chest pain for about 18 hours. He could not describe any exacerbating or relieving factors. The pain was associated with diaphoresis and he vaguely describes a possible syncopal episode last evening. EKG was within normal limits. His initial troponin came back elevated at 0.05 and asked the hospitalist to admit him for further workup. - Diagnoses Provider Diagnoses: Chest pain - Provider Notifications Discussed Care Of Patient With: Eloy Mujica Time Discussed With Above Provider: 14:47 Instructed by Provider To: Other - Dr. Mujica was called at 14:47 to discuss patient's case. Dr. Mujica will come to ED to see patient and further consult on case. 15:14 -- Patient's case was discussed. Dr. Mujica will see patient and make decision to admit 15:45 -- Dr. Mujica accepts patient for admission to hospital. Discharge - Sign-Out/Discharge Documenting (check all that apply): Patient Departure - admit - Discharge Plan Condition: Fair Disposition: ADMITTED TO [facility] - Billing Disposition and Condition Condition: FAIR Disposition: Admitted to [facility]
[2018-06-27 15:09] LABS: EGFR Non-African American 66.4 (>60)
[2018-06-27] MEDS ORDERED: Heparin for STEMI(*) 5,000 UNITS/ML 1 ML VIAL IV ONE (15:18)
[2018-06-27] MEDS ORDERED: Heparin DRIP 25,000 UNITS(*) 25,000 UNITS/500 ML BAG IV SCH (15:30)
[2018-06-27] MEDS: Nitroglycerin TAB 0.4 MG* 0.4 MG TAB SL ONE ×3 (15:38→15:55)
[2018-06-27] MEDS ORDERED: NS 0.9% 1000 ML*IV.FLUID IV ONE (15:51)
[2018-06-27] MEDS ORDERED: Ondansetron INJ* 2 MG/ML VIAL IV PRN (16:04)
[2018-06-27] MEDS ORDERED: Acetaminophen TAB* 325 MG PO PRN (16:04)
--- NOTE | 2018-06-27 16:04 | RAD ---
Indication: Chest pain. 2 views of the chest including dual energy PA views demonstrate no mediastinal shift. Heart is of normal size and configuration. Lung muñiz appear clear. When compared to previous exam of March 18, 2017 no significant change is noted. IMPRESSION: No active cardiopulmonary disease is noted.
[2018-06-27] MEDS ORDERED: Iohexol 350* (CONTRAST) 500 ML MDV IV ONE (16:05)
[2018-06-27] MEDS ORDERED: NS 0.9% 1000 ML* 1,000 ML IV SCH (16:15)
[2018-06-27] MEDS ORDERED: Ketorolac INJ* 30 MG/ML 1 ML VIAL IV PUSH ONE (16:18)
[2018-06-27] MEDS ORDERED: Albuterol 2.5 MG/3 ML NEB.SOL* (0.083%) INH PRN (16:20)
[2018-06-27] MEDS ORDERED: Potassium Chlor TAB* 20 MEQ TAB.ER PO ONE (16:22)
--- NOTE | 2018-06-27 17:02 | RAD ---
Indication: Chest pain, evaluate for aortic dissection. Contrast: Administered 100.0 ml of OMNIPAQUE 350 mg/ml CTA of the chest performed after IV contrast administration. Coronal and sagittal reconstructed images were obtained. Comparison is made with previous exam dated March 18, 2017. Pulmonary arterial tree is well opacified. There are no filling defects present to suggest pulmonary embolus. The aorta demonstrates no evidence of aortic dissection. No aneurysmal dilatation is noted. There is no mediastinal or hilar adenopathy noted. Inferior thyroid lobes are unremarkable. The heart demonstrates no pericardial effusion. The trachea and major bronchi appear patent. Lung muñiz demonstrate no evidence of alveolar consolidation. No pleural fluid is identified. The visualized abdominal organs are grossly unremarkable. The bony structures are grossly unremarkable. IMPRESSION: No evidence of aortic dissection is noted. No aneurysmal dilatation of the thoracic aorta is noted. No pulmonary embolus is noted. No pulmonary nodules are noted.
[2018-06-27] MEDS ORDERED: Nitroglycerin 2% OINT* 1 GM PAK TOPICAL ONE (18:47)
[2018-06-27] MEDS ORDERED: Nicotine Inhaler* 10 MG AMP INH PRN (18:47)
[2018-06-27] MEDS ORDERED: Mouth Piece, Nicotine* 1 EACH CARTRIDGE INH PRN (18:47)
[2018-06-27] MEDS ORDERED: Diazepam SYRINGE* 5 MG/ML 2 ML SYRINGE (10 MG total) IV ONE (20:10)
[2018-06-27] MEDS ORDERED: oxyCODONE/Acetamin 5/325 MG* TAB PO PRN ×2 (20:59)
--- NOTE | 2018-06-27 20:59 | PN ---
Hospitalist Progress Note Date of Service: 06/27/18 Patient with persistent left chest pain. Given topical nitro but reported diaphoresis, dizziness, MCKINNEY and asked for it to be removed. Given one dose of IV diazepam, as chest pain does have a musculoskeletal component but minimal effect on pain. Patient states that morphine causes severe itching and hydrocodone causes nausea and vomiting. He has tolerated Percocet in the past; will start prn Percocet to see if this helps to alleviate pain. Follow up troponin now 0.01 and tachycardia resolved. Continue IVF and start prn Percocet.
[2018-06-27] MEDS: Heparin VIAL(*) 5000 UNITS/ML VIAL (FIVE THOUSAND) SUBCUT SCH (21:24)
--- NOTE | 2018-06-27 22:46 | HP ---
MEDICINE HISTORY AND PHYSICAL: DATE OF ADMISSION: 06/27/18 ATTENDING PHYSICIAN: Eloy Mujica MD * (dictated by Will Akhtar NP). PRIMARY CARE PROVIDER: No primary care provider. CHIEF COMPLAINT: Chest pain, syncope. HISTORY OF PRESENT ILLNESS: Mr. Barakat is a 42-year-old male, who presents today with concern for a syncopal episode and chest pain. He was here in the hospital last year in February 2017, with a similar presentation of sudden onset of chest pain, was a low risk stress test, negative CTA and chest pain thought to be secondary to musculoskeletal causes. However, with this event, Mr. Barakat states that he has been in his normal state of health. When around 8 o 'clock last evening, he was standing and walking around with his family out in the yard, had a sudden onset of diffuse chest pain. He describes it as steady pain that became sharp and radiated up into his left neck and down into his left arm with tingling and numbness in the arm. He had accompanying diaphoresis and felt short of breath. He noticed that he had a racing heartbeat and palpitations. He did lie down and go to sleep last evening. He denies taking any medications. He has no other recollection other than putting his cellphone and his cigarettes down and going to sleep. He states he woke up this morning on the floor and his family and friends were knocking on his door this morning. They feel that they were knocking for about 30 to 45 minutes per the patient. He states that his dog was barking and he did not hear any of these things happening. He felt like he could not move his arm at all. His chest was hurting worse than it was last night and felt like he needed to come to the hospital. Here in the ER, he received aspirin and nitro. He initially received the aspirin, but noticed no change in his pain. After the first nitro his pain went from a 9/10 to a 5/10, and after the second nitro it came down as much to a 1/10. Third nitro was held temporarily due to blood pressure, but he did receive that with alleviation of his chest pain. He denies any recent trauma to the chest. He denies any recent activity where he would have a muscle overuse. He feels that he is in his usual state of health. He denies any recent illness. He is not on any medications. He states that he does not see any doctors as he does not like the hospital or doctors. PAST MEDICAL HISTORY: Includes asthma and a spontaneous pneumothorax. MEDICATIONS: None. The patient denies taking any home medications at this time. ALLERGIES: Include CODEINE, HYDROCODONE, MORPHINE and PENICILLIN. FAMILY HISTORY: He reports a heavy cardiac history on his father's side. His father is an identical twin and both his father and uncle have both had MIs. He also has a brother who had an SD. He has got diabetes on both sides of his family, in his mother and his father. He does report a cancer history in his family but cannot specify as to what. SOCIAL HISTORY: He states that he smokes about a pack per day, has been smoking since he was 13 years old. He reports occasional alcohol use. Denies any illicit drug use. 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 He lives by himself. He has listed his mother, Zayda Barakat, as his surrogate decision maker. REVIEW OF SYSTEMS: As per HPI, 11-point review of systems was completed. All others not mentioned in the HPI are negative. PHYSICAL EXAMINATION GENERAL: This is a middle-aged male lying in the ED stretcher. He does appear to be mildly uncomfortable. VITAL SIGNS: Temperature 97.1, heart rate 96, respiratory rate 22, blood pressure 155/94, and O2 saturation is 97% on room air. HEENT: Head is atraumatic, normocephalic. Face is symmetrical. Pupils are equal, round, reactive to light and accommodation. Extraocular movements are intact. Oral mucosa is moist. There is no oropharyngeal erythema or exudate. NECK: Supple with full range of motion and is nontender. There is no JVD noted. No carotid bruits noted. No lymphadenopathy appreciated. LUNGS: I do note that the patient does have an expiratory wheeze to the anterior left chest and left lung field heard best at the anterior muñiz only. CARDIAC: Rate is tachycardic but does sound regular, S1 and S2 sounds noted with no ectopic beats. No murmurs appreciated. No gallops or rubs noted. There is no peripheral edema noted. He does have 2+ distal pulses that are symmetric and equal bilaterally. Palpation of the patient's left chest reveals tenderness with palpation to the left chest wall at the level of the subscapularis muscle that is reproduced with palpation and reproduced with flexion and extension of the muscle. ABDOMEN: Soft and nondistended. There is mild tenderness in the right lower quadrant, which is chronic secondary to inguinal hernias per the patient. Bowel sounds are normoactive. No bruits noted or heard. No hepatosplenomegaly palpated. MUSCULOSKELETAL: There is no clubbing or cyanosis. The patient has full range of motion in upper and lower extremities. No back tenderness. SKIN: Appears grossly intact. It is non-diaphoretic. NEUROLOGIC: He is alert and oriented x3. Cranial nerves II through XII are grossly intact. There are no focal deficits. Sensation is intact to light touch to the lower extremities. DIAGNOSTIC STUDIES/LAB DATA: CBC: WBC 10.3, hemoglobin 17.9, hematocrit 52, platelet count 328,000. D-dimer is less than 200. CMP: Sodium 139, potassium 3.6, chloride 106, carbon dioxide 22, BUN 13, creatinine 1.19, glucose 124, lactic acid 2.1, calcium 10.4. Total bilirubin 1.10, AST 20, ALT 24, alk phos 72. Troponin 0.05. CRP 3.12. EKG was reviewed showing sinus tachycardia and question of nonspecific intraventricular conduction delay and perhaps some right heart strain seen in leads V1. Chest x-ray: No report as of yet but reviewed. I did not appreciate any infiltrates from the chest x-ray. Old medical records were reviewed. ASSESSMENT AND PLAN: This is a 42-year-old male with a history significant for asthma, spontaneous pneumothorax as well as nicotine dependence, who presents today with concern for chest pain and a syncopal episode as well as tachycardia and acute kidney injury. He will be admitted under observation to the telemetry floor. Plan is as follows: 1. Syncope. Mr. Barakat does not endorse any previous history of syncope. This is concerning in the presence of chest pain and with his tachycardia and subjective feelings of palpitations. I will add on a magnesium level and TSH as well to fully evaluate and we will go ahead and replace his potassium to get it to a level of 4 in the event that he is having some ectopy or arrhythmias. We will continue to monitor him on telemetry and he will benefit from getting an echocardiogram. I do think that he is somewhat dry, so we will give him fluid and continue to monitor him closely. 2. Chest pain. Mr. Barakat does endorse chest pain, which I have been able to reproduce with palpation and movement with flexion and extension of his left shoulder. The chest pain did resolve some with the nitro but appears to be recurring a little bit. I will try a dose of Toradol to see if this takes some of the left chest pain away. Unfortunately, I cannot give MORPHINE as he states it causes intense itching, but we will continue to monitor this closely. His initial troponin is indeterminate at 0.05. We will continue to trend this as well as his lactic acid, which is 2.1. Should his troponins remain stable on his chest pain, be controlled with the medical interventions and management, we could pursue a stress test on Friday or this could be done as an outpatient. His GRIFFIN score is 2. We will continue to closely monitor and determine the best course for this patient. We will also obtain a CTA to rule out dissection as this is not high in differential, but is something that needs to be ruled out. His D-dimer is less than 200, which rules out pulmonary embolism; however, given this significant pain and syncope, we do need a CTA, which will be done prior to him being transferred up to the medicine floor. 3. Acute kidney injury. Mr. Barakat endorses drinking fluids, but does admit that he drinks a lot of Mountain Dew and ice tea, which likely have contributed to his acute kidney injury. His creatinine is 1.19, only slightly above where normal is and his lactic acid is 2.1. We will give him a few liters of fluid in order to better hydrate him and repeat these labs. 4. Nicotine dependency. I have advised the patient to stop smoking. We discussed risks of smoking with heart disease. He would benefit from more smoking cessation education. He currently denies the need for Nicotrol inhaler or nicotine patches, but we will continue to evaluate for this and provide nicotine replacement should he so chose. 5. History of asthma. Continue to offer p.r.n. albuterol as needed. He is currently not in any respiratory distress. 6. FEN. He will receive normal saline as a continuous IV fluid. He is ordered a heart healthy, no caffeine diet. 7. DVT prophylaxis. He is ordered subcu heparin. 8. Code status. He is a full code. 9. Disposition. Anticipate discharge to home when medically stable. TIME SPENT: Approximately 65 minutes were spent on this admission with more than half that time spent [id number] with the patient obtaining history and physical, performing physical examination and reviewing the plan of care. Plan of care was also reviewed with my attending, Dr. Mujica, who is in agreement. WILL AKHTAR, DIGITAL MEDIA PRODUCER [id number]/[facility] #: [id number] JALEESA
[2018-06-28 04:56] LABS: Urine Appearance Clear; Urine Blood Negative (Negative); Urine Color Yellow; Urine Ketones Negative (Negative); Urine Protein Negative (Negative); Urine Specific Gravity > 1.060 (1.010-1.030); Urine Urobilinogen Positive (Negative)
[2018-06-28] MEDS: Heparin VIAL(*) 5000 UNITS/ML VIAL (FIVE THOUSAND) SUBCUT SCH (05:33)
[2018-06-28 06:01] LABS: ABS Basophils 0.1 10^3/ul (0-0.2); ABS Eosinophils 0.2 10^3/ul (0-0.6); ABS Lymphocytes 2.4 10^3/ul (1.0-4.8); ABS Monocytes 0.7 10^3/ul (0-0.8); ABS Nucleated RBC 0 10^3/ul; Hematocrit 41 % (42-52); Hemoglobin 13.9 g/dl (14.0-18.0); Lymphocyte % 23.4 % (25-47); Mean Corpuscular HGB Conc 34 g/dl (31-36); Mean Corpuscular Hemoglobin 31 pg (27-31); Mean Corpuscular Volume 91 fL (80-94); Nucleated Red Blood Cells % 0.1; Platelet Count 212 10^3/ul (150-450); Red Blood Count 4.47 10^6/ul (4.00-5.40); Red Cell Distribution Width 13 % (10.5-15); White Blood Count 10.4 10^3/ul (3.5-10.8)
[2018-06-28 06:22] LABS: EGFR Non-African American 82.1 (>60)
[2018-06-28] MEDS ORDERED: Aspirin 81 mg CHEW TAB* 81 MG TAB.CHEW PO SCH (09:00)
[2018-06-28 09:47] VITALS: BP 95/65
--- NOTE | 2018-06-28 13:01 | ECHO ---
Patient: YOLI QUINN [facility] Rec#: [id number] : 1975 Date: 06/28/2018 Age: 42y Height: 170.2 cm / 67.0 in Weight: 72.5 kg / 159.8 lbs Sex: M BSA: 1.8 Room#: 453 Admit Date#: 06/27/2018 Type: Inpatient Referring: Kiersten Zhong Reading: Tasneem Robison MD Slab Stripper: Kayleigh Steele RN RDCS Transthoracic Echocardiogram Indication: Chest pain, syncope BP: 93/57 HR: 64 Rhythm: NSR Findings History: Asthma, spontaneous pneumothorax, strong family history of CAD, smoker. Technical Comments: The study quality is fair. The study is technically limited due to the patient's smoking history. Left Ventricle: The left ventricular chamber size is normal. There is no left ventricular hypertrophy. Global left ventricular wall motion and contractility are within normal limits. Left ventricular systolic function is at the lower limits of normal. The estimated ejection fraction is 50-55%. Normal left ventricular diastolic filling is observed. Left Atrium: The left atrial chamber size is normal. Right Ventricle: The right ventricle is slightly dilated. The right ventricular global systolic function is mildly reduced. Right Atrium: The right atrial cavity size is normal. Aortic Valve: The aortic valve is trileaflet. The aortic valve leaflets are mildly thickened. There is a trace of aortic regurgitation. There is no evidence of aortic stenosis. Mitral Valve: The mitral valve leaflets are mildly thickened. There is mild mitral regurgitation. There is no evidence of mitral stenosis. Tricuspid Valve: The tricuspid valve leaflets are normal. There is trace to mild tricuspid regurgitation. No pulmonary hypertension is noted. There is no tricuspid stenosis. Pulmonic Valve: The pulmonic valve appears normal. There is mild pulmonic regurgitation. There is no pulmonic stenosis. Pericardium: There is no significant pericardial effusion. Aorta: There is no dilatation of the ascending aorta. There is no dilatation of the aortic arch. There is no dilation of the aortic root. Pulmonary Artery: The main pulmonary artery appears normal. Venous: The venous system is not well visualized. The inferior vena cava is not visualized. Summary: There was not any prior study for comparison. Conclusions The left ventricular chamber size is normal. Left ventricular systolic function is at the lower limits of normal. The estimated ejection fraction is 50-55%. The right ventricle is slightly dilated. The right ventricular global systolic function is mildly reduced. There is a trace of aortic regurgitation. There is mild mitral regurgitation. There is trace to mild tricuspid regurgitation. There is mild pulmonic regurgitation. Measurements Name Value Normal Range RVIDd (AP) 2D 2.9 cm (0.9 - 2.6) RVDdMajor (2D) 4.1 cm (2.2 - 4.4) RAd ISD 4CH 4.7 cm (3.4 - 4.9) RA (A4C)W 4 cm (2.9 - 4.6) IVSd (2D) 1 cm (0.6 - 1) LVPWd (2D) 1 cm (0.6 - 1) LVIDd (2D) 4.4 cm (3.6 - 5.4) LVIDs (2D) 3 cm - LV FS (2D) 32 % (25 - 45) Aortic Annulus 1.8 cm (1.4 - 2.6) Ao root diameter (2D) 2.9 cm (2.1 - 3.5) Ascending Ao 3 cm (2.1 - 3.4) Aortic arch 2.4 cm (1.8 - 3.4) LA dimension (AP) 2D 3.4 cm (2.3 - 3.8) LAd ISD 4CH 5.3 cm (2.9 - 5.3) LA ISD 4CH W 3.8 cm (2.5 - 4.5) Name Value Normal Range LA ESV SP 4CH (A/L) 25 ml - LA ESV SP 2CH (A/L) 29 ml - LA ESV BP (A/L) 29 ml - LA ESV BP (A/L) index 15.7 ml/m2 - LA ESV SP 4CH (MOD) 24 ml - LA ESV SP 2CH (MOD) 27 ml - Name Value Normal Range MV E-wave Vmax 1.1 m/sec - MV deceleration time 162 msec - MV A-wave Vmax 0.81 m/sec - MV E:A ratio 1.3 ratio - LV septal e' Vmax 0.09 m/sec - LV lateral e' Vmax 0.12 m/sec - LV E:e' septal ratio 12.2 ratio - LV E:e' lateral ratio 9.2 ratio - Name Value Normal Range AV Vmax 1.4 m/sec - AV VTI 31.9 cm - AV peak gradient 8 mmHg - AV mean gradient 4 mmHg - LVOT Vmax 1 m/sec - LVOT VTI 21.8 cm - LVOT peak gradient 4 mmHg - LVOT mean gradient 2 mmHg - MARTHA Vmax 0.83 m/sec - Name Value Normal Range TR Vmax 2.2 m/sec - TR peak gradient 19 mmHg - RAP 8 mmHg - RVSP 27 mmHg - Name Value Normal Range PV Vmax 0.78 m/sec -
--- NOTE | 2018-06-28 21:39 | DS ---
DISCHARGE SUMMARY: DATE OF ADMISSION: DATE OF DISCHARGE: 06/28/18 HOSPITAL COURSE: This 42-year-old man presented with chief complaint of chest pain and syncope, the history is detailed in the admission note, who was admitted to the telemetry unit. He had a lactic a lynda of 2.1 with a repeat of 0.8. He had 3 troponin levels drawn, the first was 0.05, the second two were both 0.01. I note his LDL was 115, triglycerides 174, total cholesterol 172, HDL 22.6. The morning after admission, the nurse called me to tell me that the patient wanted to leave against medical advice. I told the nurse to tell the patient to wait to talk to me. Later, when I came [place] [facility] [place], he had already left without signing the AMA form. The staff had not known he had lef t until they looked for him. FINAL DIAGNOSES: 1. Presentation with syncope and chest pain. 2. Leaving the hospital against medical advice without notification. [id number]/[facility] #: [id number]
== END 2018-06-28 09:40 | disposition left against medical advice (07) ==
LOC: ED 14:16 → MEDTELE 17:38
PROVIDERS: ADMIT Internal Medicine; ATTEND Internal Medicine
DX: R55 Syncope and collapse (principal); R07.9 Chest pain, unspecified; Z53.21 Procedure and treatment not carried out due to patient leaving prior to being seen by health care provider; F17.210 Nicotine dependence, cigarettes, uncomplicated; R20.0 Anesthesia of skin
CPT/HCPCS: 36415; 71046; 71275; 80048; 80053; 80061; 81003; 83036; 83605; 83735; 84443; 84484; 85025; 85379; 85730; 86140; 93005; 93306; 96374; 99284; A9270-GY; G0378; J1644; J1885; J3360; Q9967

== ENCOUNTER → 2018-08-18 18:41 | Emergency (ER) | payer SELFPAY ==
[~2018-08-18 18:41] MED LIST: Ciprofloxacin 0.3% OPTH.SOL* 2.5 ML BTL RIGHT EYE SCH; Fluorescein Sod TOPICAL 0.6* 0.6 MG TEST OPHTHALMIC ONE; Tetracaine 0.5% OPTH.SOL 4 ML* 1 DROP BTL ONE
--- NOTE | 2018-08-18 19:30 | ED ---
Throat Pain/Nasal Congestion - HPI Summary HPI Summary: Patient is a 42 y/o M w/ c/o a metal piece in his right eye. Patient was "grinding metal" when a piece of metal reportedly went into his right eye. This occurred at 1730 today. Patient reports wearing glasses at the time but states the piece of metal flew underneath his glasses. Patient's mother, who is present in the room, states that she saw the piece of metal with a magnifying glass [employer]. On triage, pain is rated 8/10. In the room, he notes that his right eye still feels sore and that he can feel the piece of metal when he moves his right eye. Patient also reports blurriness in his vision in right eye. He reports he has had a similar incident in the past. On triage, nothing is noted to aggravate/alleviate Sx. Home medications and allergies are reviewed. - History of Current Complaint Chief Complaint: EDEyeProblem Time Seen by Provider: 08/18/18 19:13 Hx Obtained From: Patient Onset/Duration: Sudden Onset, Lasting Hours - onset 1730 today, Still Present Severity: Severe - 8/10 Associated Signs And Symptoms: Positive: Negative - Allergies/Home Medications Allergies/Adverse Reactions: Allergies Allergy/AdvReac Type Severity Reaction Status Date / Time morphine Allergy Itching Verified 08/18/18 19:04 codeine AdvReac Vomiting Verified 08/18/18 19:04 hydrocodone AdvReac Nausea And Verified 08/18/18 19:04 Vomiting Penicillins AdvReac Vomiting Verified 08/18/18 19:04 PMH/Surg Hx/FS Hx/Imm Hx Endocrine/Hematology History: Denies: Hx Anticoagulant Therapy, Hx Diabetes, Hx Thyroid Disease Cardiovascular History: Denies: Hx Congestive Heart Failure, Hx Hypertension, Hx Pacemaker/ICD, Hx Peripheral Vascular Disease Respiratory History: Reports: Hx Asthma, Other Respiratory Problems/Disorders - pneumothorax Denies: Hx Chronic Obstructive Pulmonary Disease (COPD) GI History: Denies: Other GI Disorders History: Denies: Hx Renal Disease Musculoskeletal History: Reports: Hx Back Problems - CHRONIC BACK PAIN Denies: Hx Arthritis, Hx Osteoporosis, Hx Scoliosis Sensory History: Denies: Hx Cataracts, Hx Contacts or Glasses, Hx Glaucoma, Hx Hearing Aid Opthamlomology History: Denies: Hx Cataracts, Hx Contacts or Glasses, Hx Glaucoma Neurological History: Reports: Hx Headaches Denies: Hx Dementia, Hx Seizures, Hx Transient Ischemic Attacks (TIA), Other Neuro Impairments/Disorders Psychiatric History: Denies: Hx Anxiety, Hx Depression, Hx Substance Abuse - Surgical History Surgery Procedure, Year, and Place[place] [facility] [place]UINAL HERNIA [place] [facility] [place] Hx Anesthesia Reactions: No - Immunization History Immunizations Up to Date: Yes Infectious Disease History: No Infectious Disease History: Denies: Hx Hepatitis, Hx Human Immunodeficiency Virus (HIV), History Other Infectious Disease, Traveled Outside the [place] in Last 30 Days - Family History Known Family History: Positive: Cardiac Disease - Brother with CA at age 45. , Hypertension, Diabetes - Social History Alcohol Use: Occasionally Substance Use Type: Reports: None Hx Tobacco Use: Yes Smoking Status (MU): Heavy Every Day Tobacco Smoker Type: Cigarettes Amount Used/How Often: 1 PPD Review of Systems Negative: Fever - on vitals, temp is 97.6 F Positive: Blurred Vision - right eye , Other - possible metal piece in right eye All Other Systems Reviewed And Are Negative: Yes Physical Exam - Summary Physical Exam Summary: VITAL SIGNS: Reviewed. GENERAL: Patient is a well-developed and nourished male who is lying comfortable in the stretcher. Patient is not in any acute respiratory distress. HEAD AND FACE: No signs of trauma. No ecchymosis, hematomas or skull depressions. No sinus tenderness. EYES: PERRLA, EOMI x 2; No foreign body seen, mild conjunctiva injection, fluorescence stain was negative for corneal abrasion. No nystagmus EARS: Hearing grossly intact. Ear canals and tympanic membranes are within normal limits. MOUTH: Oropharynx within normal limits. NECK: Supple, trachea is midline, no adenopathy, no JVD, no carotid bruit, no c- spine tenderness, neck with full ROM. CHEST: Symmetric, no tenderness at palpation LUNGS: Clear to auscultation bilaterally. No wheezing or crackles. CVS: Regular rate and rhythm, S1 and S2 present, no murmurs or gallops appreciated. ABDOMEN: Soft, non-tender. No signs of distention. No rebound no guarding, and no masses palpated. Bowel sounds are normal. EXTREMITIES: FROM in all major joints, no edema, no cyanosis or clubbing. NEURO: Alert and oriented x 3. No acute neurological deficits. Speech is normal and follows commands. SKIN: Dry and warm Triage Information Reviewed: Yes Vital Signs On Initial Exam: Initial Vitals Temp Pulse Resp BP Pulse Ox 97.6 F 93 16 122/88 97 08/18/18 18:45 08/18/18 18:45 08/18/18 18:45 08/18/18 18:45 08/18/18 18:45 Vital Signs Reviewed: Yes Diagnostics - Vital Signs Vital Signs Temp Pulse Resp BP Pulse Ox 08/18/18 18:45 97.6 F 93 16 122/88 97 - Laboratory Lab Statement: Any lab studies that have been ordered have been reviewed, and results considered in the medical decision making process. Re-Evaluation - Re-Evaluation First Eval Re-Evaluation Time: 20:14 Change: Improved Comment: Patient's right eye was irrigated using Silverio's lense. Patient reports relief from pain. He will be discharged to home and advised to follow up with eye doctor. Patient understands and is agreeable with this plan. EENT Course/Dx - Course Course Of Treatment: Patient is a 42 y/o M w/ c/o a metal piece in his right eye. Patient was "grinding metal" when a piece of metal reportedly went into his right eye. This occurred at 1730 today. On triage, pain is rated 8/10. In the room, he notes that his right eye still feels sore and that he can feel the piece of metal when he moves his right eye. Patient also reports blurriness in his vision in right eye. On physical exam, no foreign body seen, mild conjunctiva injection, fluorescence stain was negative for corneal abrasion. Patient's right eye was irrigated using Silverio's lense. Patient reports relief from pain. He was be discharged to home and was advised to follow up with eye doctor. Patient understands and is agreeable with this plan. Dx of foreign body of right eye. - Diagnoses Provider Diagnoses: Foreign body of right eye Discharge - Sign-Out/Discharge Documenting (check all that apply): Patient Departure - discharge - Discharge Plan Condition: Stable Disposition: HOME Patient Education Materials: Eye Foreign Body (ED) Referrals: Emmanuel Brooks MD [Medical Doctor] - 2 Days Additional Instructions: RETURN TO THE EMERGENCY DEPARTMENT FOR CHANGING OR WORSENING SYMPTOMS. FOLLOW UP WITH OPHTHALMOLOGY IN 1-2 DAYS. - Attestation Statements Document Initiated by Scribe: Yes Documenting Scribe: Tab Jarquin Provider For Whom Scribe is Documenting (Include Credential): Sudeep Rivera MD Scribe Attestation: I, Tab Jarquin, scribed for Sudeep Rivera MD on 08/18/18 at 2038.
[2018-08-18 20:27] VITALS: BP 120/76
== END | disposition home or self-care (01) ==
LOC: ED 18:41
DX: T15.91XA Foreign body on external eye, part unspecified, right eye, initial encounter (principal); H53.8 Other visual disturbances
CPT/HCPCS: 99282; A9270-GY

== ENCOUNTER 2019-02-03 09:21 | Emergency (ER) | payer SELFPAY ==
--- NOTE | 2019-02-03 09:47 | ED ---
Back Pain - HPI Summary HPI Summary: This pt is a 43 y/o male presenting to [facility] via EMS c/o left sided low back pain x4-5 days. Pt reports he has left sided low back pain radiating down his left leg. Denies recent trauma or injury. Denies recent heavy lifting. He notes he has hx of herniated disk but states today's symptoms are not his normal pain , it is a lower pain today. Denies urinary or bowel incontinence, fever, chills , nausea, vomiting, dysuria, hematuria. Pt has seen an orthopedist in the past for his back "a long long time ago." Denies hx of kidney stones. Pt is a current smoker, 1 PPD. Denies drug and alcohol use. Allergies to morphine (reaction is itching all over), penicillin. - History of Current Complaint Chief Complaint: EDBackInjuryPain Stated Complaint: BACK PAIN PER EMS Time Seen by Provider: 02/03/19 09:32 Hx Obtained From: Patient Onset/Duration: Lasting Days, Still Present Onset/Duration: Started Days Ago, Still Present Timing: Lasting Days Back Pain Location: Is Discrete @ - left sided low back, Radiates To - left leg Severity Currently: Severe Pain Intensity: 10 Pain Scale Used: 0-10 Numeric Aggravating Symptom(s): Movement Alleviating Symptom(s): Rest Associated Signs And Symptoms: Negative: Fever, Abdominal Pain, Bladder Incontinence, Bowel Incontinence, Other - urinary symptoms - Allergies/Home Medications Allergies/Adverse Reactions: Allergies Allergy/AdvReac Type Severity Reaction Status Date / Time morphine Allergy Itching Verified 02/03/19 09:28 codeine AdvReac Vomiting Verified 02/03/19 09:28 hydrocodone AdvReac Nausea And Verified 02/03/19 09:28 Vomiting Penicillins AdvReac Vomiting Verified 02/03/19 09:28 PMH/Surg Hx/FS Hx/Imm Hx Endocrine/Hematology History: Denies: Hx Anticoagulant Therapy, Hx Diabetes, Hx Thyroid Disease Cardiovascular History: Denies: Hx Congestive Heart Failure, Hx Hypertension, Hx Pacemaker/ICD, Hx Peripheral Vascular Disease Respiratory History: Reports: Hx Asthma, Other Respiratory Problems/Disorders - pneumothorax Denies: Hx Chronic Obstructive Pulmonary Disease (COPD) GI History: Denies: Other GI Disorders History: Denies: Hx Renal Disease Musculoskeletal History: Reports: Hx Back Problems - CHRONIC BACK PAIN Denies: Hx Arthritis, Hx Osteoporosis, Hx Scoliosis Sensory History: Denies: Hx Cataracts, Hx Contacts or Glasses, Hx Glaucoma, Hx Hearing Aid Opthamlomology History: Denies: Hx Cataracts, Hx Contacts or Glasses, Hx Glaucoma Neurological History: Reports: Hx Headaches Denies: Hx Dementia, Hx Seizures, Hx Transient Ischemic Attacks (TIA), Other Neuro Impairments/Disorders Psychiatric History: Denies: Hx Anxiety, Hx Depression, Hx Substance Abuse - Surgical History Surgery Procedure, Year, and Place[place] [facility] [place] [facility] [place] Hx Anesthesia Reactions: No Infectious Disease History: No Infectious Disease History: Denies: Hx Hepatitis, Hx Human Immunodeficiency Virus (HIV), History Other Infectious Disease, Traveled Outside the [place] in Last 30 Days - Family History Known Family History: Positive: Cardiac Disease - Brother with AR at age 45. , Hypertension, Diabetes - Social History Alcohol Use: Occasionally Substance Use Type: Reports: None Hx Tobacco Use: Yes Smoking Status (MU): Heavy Every Day Tobacco Smoker Type: Cigarettes Amount Used/How Often: 1 PPD Review of Systems Negative: Fever, Chills Negative: Vomiting, Nausea Negative: dysuria, hematuria, incontinence - urinary or bowel Musculoskeletal: Other - POS: left sided back pain All Other Systems Reviewed And Are Negative: Yes Physical Exam - Summary Physical Exam Summary: GENERAL: Patient is a well-developed and nourished male who is lying comfortable in the stretcher. Patient is not in any acute respiratory distress. HEAD AND FACE: Normocephalic EYES: PERRLA, EOMI x 2. EARS: Hearing grossly intact. MOUTH: Oropharynx within normal limits. NECK: Supple, trachea is midline, no adenopathy, no JVD, no carotid bruit. CHEST: Symmetric, no tenderness at palpation LUNGS: Clear to auscultation bilaterally. No wheezing or crackles. CVS: Regular rate and rhythm, S1 and S2 present, no murmurs or gallops appreciated. ABDOMEN: Soft, non-tender. Bowel sounds are normal. No abdominal abnormal pulsations. EXTREMITIES: Full ROM in all major joints, no edema, no cyanosis or clubbing. Straight leg raise positive bilateral. NEURO: Alert and oriented x 3. No acute neurological deficits. Speech is normal and follows commands. SKIN: Dry and warm Triage Information Reviewed: Yes Vital Signs On Initial Exam: Initial Vitals Temp Pulse Resp BP Pulse Ox 97.9 F 95 16 122/83 96 02/03/19 09:24 02/03/19 09:24 02/03/19 09:24 02/03/19 09:24 02/03/19 09:24 Vital Signs Reviewed: Yes Diagnostics - Vital Signs Vital Signs Temp Pulse Resp BP Pulse Ox 02/03/19 09:24 97.9 F 95 16 122/83 96 - Laboratory Lab Statement: Any lab studies that have been ordered have been reviewed, and results considered in the medical decision making process. - CT Lumbar spine CT CT Interpretation Completed By: Radiologist Summary of CT Findings: IMPRESSION: Degenerative disc disease. There is mild narrowing of the central canal at L4-L5 and L5-S1. Dr. Avalos has reviewed this report. Re-Evaluation - Re-Evaluation First Eval Re-Evaluation Time: 10:31 Comment: Pt declines IM medications. Second Eval Re-Evaluation Time: 11:30 Change: Unchanged Comment: Pt reports his pain is not better. Will give Dilaudid IM. Third Eval Re-Evaluation Time: 12:21 Change: Improved Comment: Pt is feeling much better. He will be discharged home. Back Pain Course/Dx - Course Assessment/Plan: Pt is a 43 y/o male who presents with left sided back pain x4- 5 days. Pt reports he has left sided back pain radiating down his left leg. Lumbar spine CT shows degenerative disc disease. There is mild narrowing of the central canal at L4-L5 and L5-S1. In the ED course the pt was given Flexeril, Prednisone, Percocet, and Dilaudid. I discussed results with patient and he reports feeling better. He is hemodynamically stable and safe for discharge. Pt was given prescriptions for Motrin, Flexeril, Percocet, Prednisone. Strict return precautions given and he will otherwise follow up with an orthopedist. - Diagnoses Provider Diagnoses: Lumbar radiculopathy Discharge - Sign-Out/Discharge Documenting (check all that apply): Patient Departure - Discharge home Patient Received Moderate/Deep Sedation with Procedure: No - Discharge Plan Condition: Stable Disposition: HOME Prescriptions: Cyclobenzaprine TAB* [Flexeril 10 MG TAB*] 10 mg PO TID #20 tab Ibuprofen TAB* [Motrin TAB* 800 MG] 800 mg PO Q6H #20 tab oxyCODONE/Acetamin 5/325 MG* [Percocet 5/325 TAB*] 1 tab PO Q6H PRN #15 tab MDD 4 PRN Reason: Pain predniSONE [Prednisone 20 MG TAB] 40 mg PO DAILY #8 tablet Patient Education Materials: Lumbar Radiculopathy (ED) Referrals: Chino Goodman MD [Medical Doctor] - Additional Instructions: Follow up with Dr. Goodman, orthopedist, in 1-3 days. RETURN TO THE EMERGENCY DEPARTMENT FOR CHANGING OR WORSENING SYMPTOMS. - Billing Disposition and Condition Condition: STABLE Disposition: Home - Attestation Statements Document Initiated by Kameron: Yes Documenting Scribe: Lor Aviles Provider For Whom Kameron is Documenting (Include Credential): Kennedy Avalos MD Scribe Attestation: Lor Chavez scribed for Kennedy Avalos MD on 02/03/19 at 1647. Scribe Documentation Reviewed: Yes Provider Attestation: The documentation as recorded by the Lor chamberlain accurately reflects the service I personally performed and the decisions made by Kennedy anderson MD Status of Scribe Document: Viewed
[2019-02-03] MEDS ORDERED: Dexamethasone IV* 4 MG/ML 1 ML (4 MG) IM ONE (09:52)
[2019-02-03] MEDS ORDERED: Ketorolac INJ* 60 MG/2 ML VIAL IM ONE (09:53)
[2019-02-03] MEDS ORDERED: Cyclobenzaprine TAB* 10 MG PO ONE (09:54)
[2019-02-03] MEDS ORDERED: oxyCODONE/Acetamin 5/325 MG* TAB PO ONE (09:54)
[2019-02-03] MEDS ORDERED: predniSONE TAB* 20 MG PO ONE (10:31)
[2019-02-03] MEDS ORDERED: HYDROmorphone INJ* 0.5 MG/0.5 ML SYRINGE IM ONE (11:36)
[2019-02-03 12:51] VITALS: BP 125/83
== END 2019-02-03 12:49 | disposition home or self-care (01) ==
LOC: ED 09:21
DX: M54.16 Radiculopathy, lumbar region (principal); M51.36 Other intervertebral disc degeneration, lumbar region; Z88.5 Allergy status to narcotic agent; Z88.0 Allergy status to penicillin; F17.210 Nicotine dependence, cigarettes, uncomplicated
CPT/HCPCS: 72131; 96372; 99282; A9270-GY; J1100; J1170; J1885; J7512

== ENCOUNTER 2020-01-22 13:30 | Emergency (ER) | payer OTHER ==
[2020-01-22 14:38] LABS: ABS Neutrophils 5.4 10^3/ul (1.5-7.7); Eosinophil % 0.4 %; Hematocrit 49 % (42-52); Hemoglobin 16.7 g/dL (14.0-18.0); Mean Corpuscular HGB Conc 34 g/dL (31-36); Mean Corpuscular Hemoglobin 31 pg (27-31); Mean Corpuscular Volume 91 fL (80-94); Mean Platelet Volume 8.1 fL (7.4-10.4); Nucleated Red Blood Cells % 0.1; Platelet Count 242 10^3/uL (150-450); Red Blood Count 5.35 10^6 /uL (4.18-5.48); Red Cell Distribution Width 14 % (10-15); White Blood Count 7.4 10^3/uL (3.5-10.8)
[2020-01-22 14:49] LABS: Albumin 4.3 g/dL (3.2-5.2); Albumin/Globulin Ratio 1.4 (1-3); BUN/Creatinine Ratio 7.7 (8-20); C Reactive Protein 45.85 mg/L (<8.01); Calcium 9.4 mg/dL (8.6-10.3); EGFR African American 81.2 (>60); EGFR Non-African American 67.1 (>60); Potassium 4.7 mmol/L (3.5-5.0); Total Bilirubin 0.6 mg/dL (0.2-1.0); Total Protein 7.3 g/dL (6.4-8.9)
[2020-01-22] MEDS ORDERED: Ketorolac INJ* 30 MG/ML 1 ML VIAL IV PUSH ONE (15:08)
[2020-01-22] MEDS ORDERED: Iohexol 300* (CONTRAST) 10 ML SDV IV ONE (15:11)
--- NOTE | 2020-01-22 15:11 | ED ---
Lower Extremity - HPI Summary HPI Summary: This patient is a 44 year old M presenting to [facility] [place] accompanied by with a chief complaint of left leg pain since a couple days ago. Pt reports the pain is constant and he cannot stand on leg due to pain. It has tingling once in a while. Pt has not had similar symptoms previously. Patient reports MCKINNEY lasting two days, nausea, abdominal pain and fever. Patient denies diarrhea, dysuria, and hematuria. Pt has had double hernia surgery. Pt smokes, but does not drink. Medications reviewed. Allergies noted. - History of Current Complaint Chief Complaint: EDAbdPain Stated Complaint: SICK/HEADACHE/LETHARGIC PER PT Time Seen by Provider: 01/22/20 14:57 Hx Obtained From: Patient Mechanism Of Injury: Unknown Onset of Pain: Days Onset/Duration: Still Present Severity Initially: Severe Severity Currently: Severe Pain Intensity: 9 Pain Scale Used: 0-10 Numeric Timing: Constant Location: Radiates To - abdomen from leg Associated Signs And Symptoms: Positive: Fever, Abdominal Pain. Negative: Swelling Aggravating Factor(s): Standing Alleviating Factor(s): Nothing Able to Bear Weight: No - Allergies/Home Medications Allergies/Adverse Reactions: Allergies Allergy/AdvReac Type Severity Reaction Status Date / Time morphine Allergy Itching Verified 01/22/20 13:37 codeine AdvReac Vomiting Verified 01/22/20 13:37 hydrocodone AdvReac Nausea And Verified 01/22/20 13:37 Vomiting Penicillins AdvReac Vomiting Verified 01/22/20 13:37 Home Medications: Home Medications oxyCODONE/Acetamin 10/325(NF) [Percocet 10/325 (NF)] 1 tab PO TID PRN 04/28/19 [ History Confirmed 04/28/19] Ondansetron ODT TAB* [Zofran 4 MG Odt TAB*] 4 mg PO Q8H PRN #12 tab.odt [Rx] PMH/Surg Hx/FS Hx/Imm Hx Endocrine/Hematology History: Denies: Hx Anticoagulant Therapy, Hx Diabetes, Hx Thyroid Disease Cardiovascular History: Denies: Hx Congestive Heart Failure, Hx Hypertension, Hx Pacemaker/ICD, Hx Peripheral Vascular Disease Respiratory History: Reports: Hx Asthma, Other Respiratory Problems/Disorders - pneumothorax Denies: Hx Chronic Obstructive Pulmonary Disease (COPD) GI History: Reports: Hx Gastroesophageal Reflux Disease Denies: Other GI Disorders History: Denies: Hx Renal Disease Musculoskeletal History: Reports: Hx Back Problems - CHRONIC BACK PAIN Denies: Hx Arthritis, Hx Osteoporosis, Hx Scoliosis Sensory History: Denies: Hx Cataracts, Hx Contacts or Glasses, Hx Glaucoma, Hx Hearing Aid Opthamlomology History: Denies: Hx Cataracts, Hx Contacts or Glasses, Hx Glaucoma Neurological History: Reports: Hx Headaches, Hx Migraine Denies: Hx Dementia, Hx Seizures, Hx Transient Ischemic Attacks (TIA), Other Neuro Impairments/Disorders Psychiatric History: Denies: Hx Anxiety, Hx Depression, Hx Panic Disorder, Hx Substance Abuse - Surgical History Surgery Procedure, Year, and Place: APPENDECTOMY @ [facility] [place]RS[place], [place].INGUINAL HERNIA SX'S @ [facility] [place] 2 [place] Hx Anesthesia Reactions: No Infectious Disease History: No Infectious Disease History: Denies: Hx Hepatitis, Hx Human Immunodeficiency Virus (HIV), Hx of Known/ Suspected MRSA, Hx Tuberculosis, History Other Infectious Disease, Traveled Outside the [place] in Last 30 Days - Family History Known Family History: Positive: Cardiac Disease - Brother with ND at age 45. , Hypertension, Diabetes - Social History Alcohol Use: None Substance Use Type: Reports: None Hx Tobacco Use: Yes Smoking Status (MU): Heavy Every Day Tobacco Smoker Type: Cigarettes Amount Used/How Often: 1 PPD Have You Smoked in the Last Year: Yes Review of Systems Positive: Fever Positive: Abdominal Pain, Nausea. Negative: Diarrhea Negative: dysuria, hematuria Positive: Headache All Other Systems Reviewed And Are Negative: Yes Physical Exam - Summary Physical Exam Summary: Constitutional: Well-developed, Well-nourished, Alert. (-) Distressed Skin: Warm, Dry HENT: Normocephalic; Atraumatic Eyes: Conjunctiva normal Neck: Musculoskeletal ROM normal neck. (-) JVD, (-) Stridor, (-) Tracheal deviation Cardio: Rhythm regular, rate normal, Heart sounds normal; Intact distal pulses; Radial pulses are 2+ and symmetric. (-) Murmur Pulmonary/Chest wall: Effort normal. (-) Respiratory distress, (-) Wheezes, (-) Rales Abd: Soft, (+) tenderness in LLQ, (-) Distension, (-) Guarding, (-) Rebound Musculoskeletal: (-) Edema; Full strength in lower left extremity, DP/PT pulse 2 +; No edema in leg Lymph: (-) Cervical adenopathy Neuro: Alert, Oriented x3 Psych: Mood and affect Normal Normal testicular exam. Triage Information Reviewed: Yes Vital Signs On Initial Exam: Initial Vitals Temp Pulse Resp BP Pulse Ox 100.1 F 110 19 111/81 96 01/22/20 13:33 01/22/20 13:33 01/22/20 13:33 01/22/20 13:33 01/22/20 13:33 Vital Signs Reviewed: Yes Procedures - Sedation Patient Received Moderate/Deep Sedation with Procedure: No Diagnostics - Vital Signs Vital Signs Temp Pulse Resp BP Pulse Ox 01/22/20 13:33 100.1 F 110 19 111/81 96 - Laboratory Lab Results: Lab Results 01/22/20 01/22/20 01/22/20 Range/Units 14:24 14:24 14:24 WBC 7.4 (3.5-10.8) 10^3/uL RBC 5.35 (4.18-5.48) 10^6 /uL Hgb 16.7 (14.0-18.0) g/dL Hct 49 (42-52) % MCV 91 (80-94) fL MCH 31 (27-31) pg MCHC 34 (31-36) g/dL RDW 14 (10-15) % Plt Count 242 (150-450) 10^3/uL MPV 8.1 (7.4-10.4) fL Neut % (Auto) 72.3 % Lymph % (Auto) 13.0 % [place] % (Auto) 14.0 % Eos % (Auto) 0.4 % Baso % (Auto) 0.3 % Absolute Neuts (auto) 5.4 (1.5-7.7) 10^3/ul Absolute Lymphs (auto) 1.0 (1.0-4.8) 10^3/ul Absolute Monos (auto) 1.0 H (0-0.8) 10^3/ul Absolute Eos (auto) 0.0 (0-0.6) 10^3/ul Absolute Basos (auto) 0.0 (0-0.2) 10^3/ul Absolute Nucleated RBC 0.0 10^3/ul Nucleated RBC % 0.1 Sodium 134 L (135-145) mmol/L Potassium 4.7 (3.5-5.0) mmol/L Chloride 101 (101-111) mmol/L Carbon Dioxide 26 (22-32) mmol/L Anion Gap 7 (2-11) mmol/L BUN 9 (6-24) mg/dL Creatinine 1.17 (0.67-1.17) mg/dL Est GFR ( Amer) 81.2 (>60) Est GFR (Non-Af Amer) 67.1 (>60) BUN/Creatinine Ratio 7.7 L (8-20) Glucose 98 (70-100) mg/dL Lactic Acid 1.2 (0.5-2.0) mmol/L Calcium 9.4 (8.6-10.3) mg/dL Total Bilirubin 0.60 (0.2-1.0) mg/dL AST 18 (13-39) U/L ALT 18 (7-52) U/L Alkaline Phosphatase 85 (34-104) U/L C-Reactive Protein 45.85 H (<8.01) mg/L Total Protein 7.3 (6.4-8.9) g/dL Albumin 4.3 (3.2-5.2) g/dL Globulin 3.0 (2-4) g/dL Albumin/Globulin Ratio 1.4 (1-3) Lipase 13 (11.0-82.0) U/L Result Diagrams: 01/22/20 14:24 01/22/20 14:24 Lab Statement: Any lab studies that have been ordered have been reviewed, and results considered in the medical decision making process. - CT Abdomen/Pelvis CT CT Interpretation Completed By: Radiologist Summary of CT Findings: Abdomen/Pelvis CT reveals, per radiologist. IMPRESSION : 1. There are no renal calculi, acute inflammatory changes in the gastrointestinal tract or inflammatory change in the right groin that may account for the patient's clinical. presentation. 2. There is mixed attenuation atherosclerosis at the aortoiliac arteries that causes some. degree of stenosis, at least on the right. Please correlate to signs or symptoms of pelvic and lower lower extremity arterial insufficiency. ED physician has reviewed this radiology report. Re-Evaluation - Re-Evaluation First Eval Re-Evaluation Time: 16:36 Comment: Discussed results and further plan of care with pt. Pt is hungry, will provide turkey sandwich Lower Extremity Course/Dx - Course Course Of Treatment: Patient is here with left lower quadrant pain, nausea, low- grade fever. Patient has pinpoint tenderness in the left lower quadrant with no other physical findings of pain. Patient has forage motion of his legs with strong distal pulses. Patient had a normal testicular exam. Patient had blood performed which showed no leukocytosis and an elevated CRP of 45. He received a CT scan for diverticulitis which was negative. Patient did have some stenosis of the right iliac artery but his symptoms are all left-sided. Patient is discharged with Zofran for nausea. - Diagnoses Provider Diagnoses: LLQ abdominal pain, Nausea Discharge ED - Sign-Out/Discharge Documenting (check all that apply): Patient Departure - Discharge Plan Condition: Stable Disposition: HOME Prescriptions: Ondansetron ODT TAB* [Zofran 4 MG Odt TAB*] 4 mg PO Q8H PRN #12 tab.odt PRN Reason: Nausea Patient Education Materials: Abdominal Pain (ED) Referrals: [facility] [place] [Outside] - 3 Days Additional Instructions: Take nausea medicine as prescribed. Tylenol for pain. Return to ED if you experience belly pain, pain in testicles, vomiting or any other concerning symptoms - Billing Disposition and Condition Condition: STABLE Disposition: Home - Attestation Statements Document Initiated by Scribe: Yes Documenting Scribe: Sindy Macias Provider For Whom Kameron is Documenting (Include Credential): Billy Curtis MD Scribe Attestation: Sindy Chavez, scribed for Billy Curtis MD on 01/22/20 at 1746. Scribe Documentation Reviewed: Yes Provider Attestation: The documentation as recorded by the Sindy chamberlain accurately reflects the service I personally performed and the decisions made by me, Billy Curtis MD Status of Scribe Document: Viewed
[2020-01-22 16:57] VITALS: BP 126/100
== END 2020-01-22 16:56 | disposition home or self-care (01) ==
LOC: ED 13:30
DX: R10.12 Left upper quadrant pain (principal); R11.0 Nausea; R50.9 Fever, unspecified; R51 Headache; K21.9 Gastro-esophageal reflux disease without esophagitis; Z88.0 Allergy status to penicillin; Z88.1 Allergy status to other antibiotic agents; Z88.6 Allergy status to analgesic agent; F17.210 Nicotine dependence, cigarettes, uncomplicated
CPT/HCPCS: 36415; 74177; 80053; 83605; 83690; 85025; 86140; 96374; 99282; J1885; Q9967